=== PATIENT | male | born 1965 | race Caucasian/White ===

== ENCOUNTER → 2019-05-20 | Day surgery (SDC) | payer OTHER ==
[2019-05-18 10:30] LABS: BASOPHILS % 0.5 % (0.0-1.0); EOSINOPHILS # (AUTO) 0.1 (0.0-0.4); EOSINOPHILS % 1.4 % (0.0-6.0); HEMATOCRIT 47.1 % (38.2-49.6); LYMPHOCYTES # (AUTO) 1.6 (1.0-3.2); LYMPHOCYTES % 20.5 % (18.0-39.1); MEAN CORPUSCULAR HEMOGLOBIN 32.1 pg (28-32); MEAN CORPUSCULAR VOLUME 94.6 fL (81-99); MONOCYTES # (AUTO) 0.9 (0.2-0.8); NEUTROPHILS % 65.5 % (38.7-80.0); PLATELET COUNT 192 x10e3/uL (140-360); RED BLOOD COUNT 4.98 x10e6/uL (4.3-5.7); RED CELL DISTRIBUTION WIDTH 13.5 % (11.7-14.4)
[2019-05-18 10:49] LABS: ALANINE AMINOTRANSFERASE 18 IU/L (0-55); ALBUMIN 4.3 g/dL (3.5-5.0); ALBUMIN/GLOBULIN RATIO 1.2 (0.8-2.0); ALKALINE PHOSPHATASE 106 IU/L (40-150); ANION GAP 12.5 mmol/L (8-16); BLOOD UREA NITROGEN 25 mg/dL (7-26); BUN/CREATININE RATIO 27 (6-25); CALCIUM 9.8 mg/dL (8.4-10.2); CARBON DIOXIDE 26 mmol/L (22-29); CHLORIDE 103 mmol/L (98-107); CREATININE, SERUM 0.93 mg/dL (0.72-1.25); EST GLOMERULAR FILTRATION RATE > 60 ML/MIN (60-); GLUCOSE 97 mg/dL (74-118); POTASSIUM 4.5 mmol/L (3.5-5.1); SODIUM 137 mmol/L (136-145)
[2019-05-18 10:53] LABS: INR 0.92; PROTHROMBIN TIME 12.8 seconds (11.9-14.5)
[2019-05-18 10:54] LABS: PARTIAL THROMBOPLASTIN TIME 35.4 seconds (23.8-35.5)
--- NOTE | 2019-05-18 13:45 | Diagnostic Imaging Report ---
EXAMINATION: CHEST 2 VIEWS INDICATION: Preop. Left heart catheter ^PREOP FOR LEFT HEART CATHETERIZATION ^[id number] ^1104 COMPARISON: None FINDINGS: TUBES and LINES: Sternal wires. LUNGS: Lungs are well inflated. Lungs are clear. There is no evidence of pneumonia or pulmonary edema. PLEURA: No pleural effusion or pneumothorax. HEART AND MEDIASTINUM: The cardiomediastinal silhouette is unremarkable. BONES AND SOFT TISSUES: No acute osseous lesion. Soft tissues are unremarkable. UPPER ABDOMEN: No free air under the diaphragm. IMPRESSION: No acute thoracic abnormality. Signed by: Dr. Pako Maciel M.D. on 05/18/2019 1:41 PM
[2019-05-20] VITALS (13 sets, daily range): BP systolic 111–133; BP diastolic 58–82
[~2019-05-20] VITALS: Ht 177.8 cm; Wt 88.5 kg
[~2019-05-20] MED LIST: ASPIR 8181 MG PO; ASPIRIN BUFFER325 MG PO; ATORVASTATIN CA40 MG PO; BIVALRIUDIN 250 MG/VIAL VIAL IV ONE; CLOPIDOGREL BISULFATE 75 MG TAB ONE; CLOPIDOGREL75 MG PO; COQ-10100 MG PO; CRESTOR40 MG PO; CYMBALTA30 MG PO; EFFIENT10 MG PO; FENTANYL CITRATE/PF 100MCG/2 ML INJ ONE; HEPARIN SOD/SOD CHLORIDE 2,000 ML ONE; IOPAMIDOL 370 MG/ML 200 ML INFUS..BTL INJ ONE; LIDOCAINE HCL 2% LOCAL 20 ML VIAL ONE; METOPROLOL TART50 MG PO; MIDAZOLAM HCL 2 MG/2 ML VIAL ONE; MIRAPEX0.25 MG PO; NIACIN100 MG PO; PANTOPRAZOLE SO40 MG PO; SODIUM CHLORIDE 0.9% 1000ML 1,000 ML ONE; SODIUM CHLORIDE 0.9% 50ML 50 ML ONE; VITAMIN C500 M1 PO; XANAX2 MG PO
--- OUTSIDE RECORDS SUMMARY | 2019-05-20 07:17 | XMS REPORT | Clinical Summary ---
Author Author [facility] Address Unknown Phone Unavailable Care Team Providers Care Pattern Vault Clerk Name Role Phone Aris Aguilar MD PCP Allergies Not on File Medications Not on file Active Problems Not on file Social History Date Tobacco Use Types Packs/Day Years Used Never Assessed Sex Assigned at Date Recorded Not on file Industry Job Start Date Occupation Not on file Not on file Not on file Travel End Travel History Travel Start No recent travel history available. Last Filed Vital Signs Not on file Plan of Treatment Health Maintenance Due Date Last Done Comments COLONOSCOPY SCREENING 2016 SHINGLES VACCINES (#1) 2016 INFLUENZA VACCINE 06/02/2019 Results Not on fileafter 05/19/2018 Insurance Type Payer Benefit Subscriber ID Effective Phone Address Plan / Dates Group HMO/PPO [employer] xxxxxxxxx 2015-P THCARE resent CHOICE/CHO ICE + Advance Directives Patient has advance care planning documents on file. For more information, kirit roberson contact: Zhao Lux [address] [place] [address]
--- OUTSIDE RECORDS SUMMARY | 2019-05-20 07:18 | XMS REPORT | Clinical Summary ---
Author Author [facility] Address Unknown Phone Unavailable Care Team Providers Care Customer Engineer Name Role Phone Aris Aguilar PCP Maria Luisa Castellano 32 Unavailable Allergies No Known Allergies Medications End Date Status Medication Sig Dispensed Refills Start Date Active ALPRAZolam (XANAX) 1 MG Take 1 mg by 0 tablet mouth 3 (three) times daily as needed for Anxiety. Active DULoxetine (CYMBALTA) 60 Take 60 mg by 0 MG capsule mouth daily. Active psyllium (METAMUCIL) Take 1 packet 0 powder by mouth daily. Active coenzyme Q10 100 mg Take 100 mg 0 capsule by mouth daily. Active aspirin 81 MG EC tablet Take 81 mg by 0 mouth daily. 09/06/2019 Active sodium chloride 0.65% 1 spray by 15 mL 0 (OCEAN) 0.65 % nasal Nasal route 8 spray as needed. 09/06/2019 Active senna (SENOKOT) 8.6 mg Take 1 tablet 30 tablet 0 tablet (8.6 mg 8 total) by mouth every night as needed for Constipation. Active melatonin 5 mg Tab tablet Take 1 tablet 30 each 0 (5 mg total) 8 by mouth nightly. 09/07/2019 Active clopidogrel (PLAVIX) 75 Take 1 tablet 30 tablet 2 mg tablet (75 mg total) 8 by mouth daily. 09/06/2019 Active lisinopril (ZESTRIL) 2.5 Take 1 tablet 30 tablet 11 MG tablet (2.5 mg 8 total) by mouth daily. 09/06/2019 Active metoprolol (TOPROL-XL) Take 0.5 30 tablet 3 100 MG 24 hr tablet tablets (50 8 mg total) by mouth daily. Active atorvastatin (LIPITOR) 80 Take 1 tablet 30 tablet 3 MG tablet (80 mg total) 8 by mouth daily. 09/06/2018 Discontinued METOPROLOL SUCCINATE ORAL Take by mouth 0 daily. 09/06/2018 Discontinued atorvastatin (LIPITOR) 40 Take 40 mg by 0 MG tablet mouth daily. 09/06/2018 Discontinued atorvastatin (LIPITOR) 40 Take 2 30 tablet 0 MG tablet tablets (80 8 mg total) by mouth daily. 09/06/2018 Discontinued metoprolol (TOPROL-XL) Take 1 tablet 30 tablet 3 100 MG 24 hr tablet (100 mg 8 total) by mouth daily. 09/09/2018 mINOCYCLine Take 1 6 capsule 0 (MINOCIN,DYNACIN) 100 MG capsule (100 8 capsule mg total) by mouth every 12 (twelve) hours for 3 days. 10/07/2018 lidocaine (LIDODERM) 5 % Place 1 patch 30 patch 0 patch onto the skin 8 daily for 30 days Remove & Discard patch within 12 hours or as directed by MD. 09/06/2018 Discontinued furosemide (LASIX) 20 MG Take 1 tablet 20 tablet 0 tablet (20 mg total) 8 by mouth 2 (two) times daily. 09/06/2018 Discontinued potassium chloride SA Take 1 tablet 60 tablet 2 (K-DUR,KLOR-CON) 20 MEQ (20 mEq 8 tablet total) by mouth 2 (two) times daily. Active Problems Problem Noted Date NSTEMI (non-ST elevated myocardial infarction) 09/04/2018 Essential hypertension 09/04/2018 HLD (hyperlipidemia) 09/04/2018 Anxiety and depression 09/04/2018 S/P CABG x 3 09/01/2018 Respiratory insufficiency 09/01/2018 Lactic acidosis 09/01/2018 Hyperglycemia 09/01/2018 Acute blood loss anemia 09/01/2018 Coronary artery disease 08/31/2018 Encounters Care Team Description Date Type Specialty Sunil Chin MD EXPLORATION,MEDIASTINAL 09/01/2018 Surgery Livan Baker MD 09/01/2018 Anesthesia Event Elie Moon 08/31/2018 Anesthesia Event Sunil Chin MD BYPASS,AORTO CORONARY RONIT/SVG 08/31/2018 Surgery Suinl Chin MD S/P CABG (coronary artery bypass graft) (Primary Dx); Respiratory insufficiency; Coronary artery disease involving [place] heart with unstable angina pectoris, unspecified vessel or lesion type (HCC); Essential hypertension; Acute blood loss anemia; Thrombocytopenia (HCC); Generalized anxiety disorder 08/31/2018 Hospital Cardiology - Encounter 09/06/2018 Sunil Chin MD 08/30/2018 Hospital Encounter Sunil Chin MD 08/30/2018 Hospital Cardiology Encounter Sunil Chin MD Acute blood loss anemia 08/30/2018 Hospital Pre-Admission Testing Encounter Elissa Walker RN 08/27/2018 Orders Only Transplant after 05/19/2018 Social History Date Tobacco Use Types Packs/Day Years Used Quit: 08/24/2018 Former Smoker 0.5 30 Smokeless Tobacco: Never Used Tobacco Cessation: Counseling Given: Yes Alcohol Use Drinks/Week oz/Week Comments Yes rarely Sex Assigned at Date Recorded Not on file Industry Job Start Date Occupation Not on file Not on file Not on file Travel End Travel History Travel Start No recent travel history available. Last Filed Vital Signs Time Taken Vital Sign Reading 09/06/2018 11:52 AM 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 Blood Pressure 107/55 09/06/2018 11:52 AM 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 Pulse 67 09/06/2018 11:52 AM 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 Temperature 36.6 C (97.8 F) 09/06/2018 11:52 AM 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 Respiratory Rate 18 09/06/2018 11:52 AM 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 Oxygen Saturation 93% 09/01/2018 5:15 PM CDT Inhaled Oxygen 60% Concentration 09/06/2018 4:10 AM 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 Weight 89 kg (196 lb 1.6 oz) 08/31/2018 8:00 AM CDT Height 177.8 cm (5' 10") 09/06/2018 4:10 AM 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 Body Mass Index 28.14 Plan of Treatment Not on file Implants Device Identifier Shelf Expiration Date Model / Serial / Lot Implanted Type Area Manufactur er 03/01/2023 [id number] / / [id number] Sternal Zipfix Ndl Strl Cardiovasc N/A: Sternum SYNTHES:SY [id number] - [id number] ular [employer]THES [place] Implanted: Qty: 2 on 08/31/2018 by Sunil Chin MD 03/01/2023 [id number] / / [id number] Sternal Zipfix Ndl Strl Cardiovasc SYNTHES:SY .[id number] - [id number] ular [employer]THES [place] Implanted: Qty: 2 on 09/01/2018 by Sunil Chin MD Procedures Comments Procedure Name Priority Date/Time Associated Diagnosis RHYTHM STRIP - SCAN 02/10/2019 11:40 AM CDT TRANSFUSE PLASMA STAT 12/09/2018 5:33 PM 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 RHYTHM STRIP - SCAN 09/08/2018 11:40 AM 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 NM MUGA CARD IMAGING EQ Routine 09/05/2018 REST WM EF 3:40 PM 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 ECHOCARDIOGRAM REPORT - 09/05/2018 SCAN 3:20 PM 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 XR CHEST 1 VIEW Routine 09/05/2018 PORTABLE/BEDSIDE 5:41 AM 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 BASIC METABOLIC PANEL (7) Routine 09/05/2018 5:28 AM 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 CBC (HEMOGRAM ONLY) Routine 09/05/2018 5:28 AM 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 2D ECHO W/ DOPPLER Routine 09/04/2018 (CW/PW/COLOR) 5:08 PM CDT XR CHEST 1 VIEW NERI 09/04/2018 PORTABLE/BEDSIDE 3:37 PM CDT XR CHEST 1 VIEW Routine 09/04/2018 PORTABLE/BEDSIDE 7:12 AM CDT BASIC METABOLIC PANEL (7) Routine 09/04/2018 5:48 AM CDT TRANSFUSION SERVICE 09/03/2018 REPORT - SCAN 5:50 PM CDT CBC W/PLT COUNT & AUTO NERI 09/03/2018 DIFFERENTIAL 10:34 AM CDT BASIC METABOLIC PANEL (7) NERI 09/03/2018 10:34 AM CDT CBC W/PLT COUNT & AUTO NERI 09/03/2018 DIFFERENTIAL 10:34 AM CDT XR CHEST 1 VIEW Routine 09/03/2018 PORTABLE/BEDSIDE 7:31 AM CDT PREPARE PLASMA STAT 09/02/2018 11:55 PM CDT PREPARE LEUKO-REDUCED RBC STAT 09/02/2018 11:54 PM CDT PREPARE LEUKO-REDUCED RBC STAT 09/02/2018 11:54 PM CDT PREPARE LEUKO-REDUCED STAT 09/02/2018 PLATELETS 11:54 PM CDT PREPARE CRYOPRECIPITATE STAT 09/02/2018 11:54 PM CDT PREPARE LEUKO-REDUCED RBC STAT 09/02/2018 11:54 PM CDT TRANSFUSION SERVICE 09/02/2018 REPORT - SCAN 6:03 PM CDT XR CHEST 1 VIEW STAT 09/02/2018 PORTABLE/BEDSIDE 5:52 PM CDT XR CHEST 1 VIEW STAT 09/02/2018 PORTABLE/BEDSIDE 10:55 AM CDT POCT-GLUCOSE METER Routine 09/02/2018 10:11 AM CDT PROCALCITONIN Routine 09/02/2018 10:06 AM CDT ECHOCARDIOGRAM REPORT - 09/02/2018 SCAN 9:20 AM CDT POCT-GLUCOSE METER Routine 09/02/2018 5:40 AM CDT POCT-GLUCOSE METER Routine 09/02/2018 2:58 AM CDT CBC (HEMOGRAM ONLY) Routine 09/02/2018 2:56 AM CDT PHOSPHORUS Routine 09/02/2018 2:56 AM CDT MAGNESIUM Routine 09/02/2018 2:56 AM CDT BASIC METABOLIC PANEL (7) Routine 09/02/2018 2:56 AM CDT PREPARE PLASMA STAT 09/01/2018 11:55 PM CDT PREPARE PLATELETS STAT 09/01/2018 11:54 PM CDT POCT-GLUCOSE METER Routine 09/01/2018 11:24 PM CDT POCT-GLUCOSE METER Routine 09/01/2018 9:43 PM CDT CBC W/PLT COUNT & AUTO STAT 09/01/2018 DIFFERENTIAL 9:41 PM CDT LACTIC ACID, ARTERIAL STAT 09/01/2018 9:41 PM CDT CBC W/PLT COUNT & AUTO STAT 09/01/2018 DIFFERENTIAL 9:41 PM CDT TRANSFUSION SERVICE 09/01/2018 REPORT - SCAN 6:02 PM CDT POCT-GLUCOSE METER Routine 09/01/2018 5:08 PM CDT BLOOD GAS, ARTERIAL Routine 09/01/2018 5:06 PM CDT ECG 12-LEAD Routine 09/01/2018 3:33 PM CDT POCT-GLUCOSE METER Routine 09/01/2018 3:24 PM CDT TROPONIN I Routine 09/01/2018 3:24 PM CDT LIMITED 2D ECHOCARDIOGRAM STAT 09/01/2018 2:51 PM CDT OXYGEN SATURATION, Routine 09/01/2018 MEASURED 1:10 PM CDT LACTIC ACID, ARTERIAL Routine 09/01/2018 1:10 PM CDT BLOOD GAS, ARTERIAL STAT 09/01/2018 1:10 PM CDT XR CHEST 1 VIEW STAT 09/01/2018 PORTABLE/BEDSIDE 11:02 AM CDT (CELLAVISION MANUAL DIFF) STAT 09/01/2018 10:31 AM CDT CBC W/PLT COUNT & AUTO STAT 09/01/2018 DIFFERENTIAL 10:31 AM CDT BLOOD GAS, ARTERIAL STAT 09/01/2018 10:31 AM CDT PT/APTT STAT 09/01/2018 10:31 AM CDT CALCIUM, IONIZED STAT 09/01/2018 10:31 AM CDT PHOSPHORUS STAT 09/01/2018 10:31 AM CDT MAGNESIUM STAT 09/01/2018 10:31 AM CDT BASIC METABOLIC PANEL (7) STAT 09/01/2018 10:31 AM CDT CBC W/PLT COUNT & AUTO STAT 09/01/2018 DIFFERENTIAL 10:31 AM CDT HGB/HCT (H&H) - STAT LAB STAT 09/01/2018 9:29 AM CDT GLUCOSE-STAT LAB STAT 09/01/2018 9:29 AM CDT POTASSIUM-STAT LAB STAT 09/01/2018 9:29 AM CDT SODIUM NA-STAT LAB STAT 09/01/2018 9:29 AM CDT BLOOD GAS, ARTERIAL STAT 09/01/2018 9:29 AM CDT CALCIUM, IONIZED STAT 09/01/2018 9:29 AM CDT RRL CRITICAL LABS STAT 09/01/2018 (ABG,NA,K,H&H,GLUCOSE) 9:29 AM CDT HGB/HCT (H&H) - STAT LAB STAT 09/01/2018 8:39 AM CDT GLUCOSE-STAT LAB STAT 09/01/2018 8:39 AM CDT POTASSIUM-STAT LAB STAT 09/01/2018 8:39 AM CDT SODIUM NA-STAT LAB STAT 09/01/2018 8:39 AM CDT BLOOD GAS, ARTERIAL STAT 09/01/2018 8:39 AM CDT CALCIUM, IONIZED STAT 09/01/2018 8:39 AM CDT RRL CRITICAL LABS STAT 09/01/2018 (ABG,NA,K,H&H,GLUCOSE) 8:39 AM CDT TRANSFUSE LEUKO-REDUCED Routine 09/01/2018 RED BLOOD CELLS 8:17 AM CDT HGB/HCT (H&H) - STAT LAB STAT 09/01/2018 7:57 AM CDT GLUCOSE-STAT LAB STAT 09/01/2018 7:57 AM CDT POTASSIUM-STAT LAB STAT 09/01/2018 7:57 AM CDT SODIUM NA-STAT LAB STAT 09/01/2018 7:57 AM CDT BLOOD GAS, ARTERIAL STAT 09/01/2018 7:57 AM CDT CALCIUM, IONIZED STAT 09/01/2018 7:57 AM CDT RRL CRITICAL LABS STAT 09/01/2018 (ABG,NA,K,H&H,GLUCOSE) 7:57 AM CDT TRANSFUSE LEUKO-REDUCED Routine 09/01/2018 RED BLOOD CELLS 7:39 AM CDT TRANSFUSE LEUKO-REDUCED STAT 09/01/2018 RED BLOOD CELLS 7:24 AM CDT TRANSFUSE LEUKO-REDUCED STAT 09/01/2018 RED BLOOD CELLS 7:22 AM CDT TRANSFUSE LEUKO-REDUCED STAT 09/01/2018 PLATELETS 7:21 AM CDT HGB/HCT (H&H) - STAT LAB STAT 09/01/2018 7:17 AM CDT GLUCOSE-STAT LAB STAT 09/01/2018 7:17 AM CDT POTASSIUM-STAT LAB STAT 09/01/2018 7:17 AM CDT SODIUM NA-STAT LAB STAT 09/01/2018 7:17 AM CDT BLOOD GAS, ARTERIAL STAT 09/01/2018 7:17 AM CDT PLATELET COUNT Routine 09/01/2018 7:17 AM CDT FIBRINOGEN STAT 09/01/2018 7:17 AM CDT APTT STAT 09/01/2018 7:17 AM CDT PROTHROMBIN TIME/INR STAT 09/01/2018 7:17 AM CDT THROMBOELASTOGRAPH (TEG) STAT 09/01/2018 7:17 AM CDT CALCIUM, IONIZED STAT 09/01/2018 7:17 AM CDT RRL CRITICAL LABS STAT 09/01/2018 (ABG,NA,K,H&H,GLUCOSE) 7:17 AM CDT TRANSFUSE PLASMA STAT 09/01/2018 7:05 AM CDT EXPLORATION,MEDIASTINAL 09/01/2018 Coronary artery disease, 7:00 AM CDT angina presence unspecified, unspecified vessel or lesion type, unspecified whether [place] or transplanted heart HGB/HCT (H&H) - STAT LAB STAT 09/01/2018 6:38 AM CDT BLOOD GAS, ARTERIAL STAT 09/01/2018 6:38 AM CDT THROMBOELASTOGRAPH (TEG) STAT 09/01/2018 6:38 AM CDT TRANSFUSE CRYOPRECIPITATE STAT 09/01/2018 6:35 AM CDT TRANSFUSE CRYOPRECIPITATE STAT 09/01/2018 6:34 AM CDT TRANSFUSE LEUKO-REDUCED STAT 09/01/2018 RED BLOOD CELLS 6:33 AM CDT TRANSFUSE LEUKO-REDUCED STAT 09/01/2018 RED BLOOD CELLS 6:32 AM CDT XR CHEST 1 VIEW STAT 09/01/2018 PORTABLE/BEDSIDE 6:22 AM CDT XR CHEST 1 VIEW STAT 09/01/2018 PORTABLE/BEDSIDE 5:38 AM CDT FIBRINOGEN STAT 09/01/2018 4:09 AM CDT APTT STAT 09/01/2018 4:09 AM CDT PROTHROMBIN TIME/INR STAT 09/01/2018 4:09 AM CDT LACTIC ACID, ARTERIAL STAT 09/01/2018 4:06 AM CDT OXYGEN SATURATION, STAT 09/01/2018 MEASURED 4:05 AM CDT BLOOD GAS, ARTERIAL STAT 09/01/2018 4:05 AM CDT PHOSPHORUS Routine 09/01/2018 4:05 AM CDT MAGNESIUM Routine 09/01/2018 4:05 AM CDT BASIC METABOLIC PANEL (7) Routine 09/01/2018 4:05 AM CDT XR CHEST 1 VIEW Routine 09/01/2018 PORTABLE/BEDSIDE 3:51 AM CDT LACTIC ACID, ARTERIAL STAT 09/01/2018 1:29 AM CDT HGB/HCT (H&H) - STAT LAB STAT 09/01/2018 12:47 AM CDT GLUCOSE-STAT LAB STAT 09/01/2018 12:47 AM CDT POTASSIUM-STAT LAB STAT 09/01/2018 12:47 AM CDT SODIUM NA-STAT LAB STAT 09/01/2018 12:47 AM CDT RRL CRITICAL LABS STAT 09/01/2018 (ABG,NA,K,H&H,GLUCOSE) 12:47 AM CDT CALCIUM, IONIZED STAT 09/01/2018 12:47 AM CDT BLOOD GAS, ARTERIAL STAT 09/01/2018 12:47 AM CDT PREPARE RBC STAT 08/31/2018 11:57 PM CDT HEMOGLOBIN AND HEMATOCRIT STAT 08/31/2018 11:16 PM CDT PLATELET COUNT STAT 08/31/2018 11:16 PM CDT FIBRINOGEN STAT 08/31/2018 11:16 PM CDT APTT STAT 08/31/2018 11:16 PM CDT PROTHROMBIN TIME/INR STAT 08/31/2018 11:16 PM CDT BASIC METABOLIC PANEL (7) STAT 08/31/2018 11:16 PM CDT BLOOD GAS, ARTERIAL STAT 08/31/2018 11:16 PM CDT TROPONIN I Routine 08/31/2018 11:16 PM CDT CREATINE KINASE (CK), Routine 08/31/2018 TOTAL AND MB 11:16 PM CDT CREATINE KINASE (CK), Routine 08/31/2018 TOTAL AND MB 11:16 PM CDT CBC W/PLT COUNT & AUTO STAT 08/31/2018 DIFFERENTIAL 10:06 PM CDT OXYGEN SATURATION, Routine 08/31/2018 MEASURED 10:06 PM CDT LACTIC ACID, ARTERIAL Routine 08/31/2018 10:06 PM CDT CBC W/PLT COUNT & AUTO STAT 08/31/2018 DIFFERENTIAL 10:06 PM CDT PHOSPHORUS STAT 08/31/2018 10:06 PM CDT GLUCOSE STAT 08/31/2018 10:06 PM CDT MAGNESIUM STAT 08/31/2018 10:06 PM CDT POTASSIUM STAT 08/31/2018 10:06 PM CDT SODIUM STAT 08/31/2018 10:06 PM CDT BLOOD GAS, ARTERIAL STAT 08/31/2018 10:06 PM CDT XR CHEST 1 VIEW Routine 08/31/2018 PORTABLE/BEDSIDE 10:02 PM CDT TRANSFUSE PLASMA Routine 08/31/2018 9:44 PM CDT HGB/HCT (H&H) - STAT LAB STAT 08/31/2018 9:30 PM CDT GLUCOSE-STAT LAB STAT 08/31/2018 9:30 PM CDT POTASSIUM-STAT LAB STAT 08/31/2018 9:30 PM CDT SODIUM NA-STAT LAB STAT 08/31/2018 9:30 PM CDT BLOOD GAS, ARTERIAL STAT 08/31/2018 9:30 PM CDT CALCIUM, IONIZED STAT 08/31/2018 9:30 PM CDT THROMBOELASTOGRAPH (TEG) STAT 08/31/2018 9:30 PM CDT FIBRINOGEN STAT 08/31/2018 9:30 PM CDT PROTHROMBIN TIME/INR STAT 08/31/2018 9:30 PM CDT APTT STAT 08/31/2018 9:30 PM CDT RRL CRITICAL LABS STAT 08/31/2018 (ABG,NA,K,H&H,GLUCOSE) 9:30 PM CDT TRANSFUSE LEUKO-REDUCED Routine 08/31/2018 PLATELETS 9:17 PM CDT TRANSFUSE PLASMA Routine 08/31/2018 9:11 PM CDT TRANSFUSE LEUKO-REDUCED Routine 08/31/2018 PLATELETS 9:10 PM CDT TRANSFUSE PLASMA Routine 08/31/2018 9:09 PM CDT HGB/HCT (H&H) - STAT LAB STAT 08/31/2018 8:22 PM CDT GLUCOSE-STAT LAB STAT 08/31/2018 8:22 PM CDT POTASSIUM-STAT LAB STAT 08/31/2018 8:22 PM CDT SODIUM NA-STAT LAB STAT 08/31/2018 8:22 PM CDT BLOOD GAS, ARTERIAL STAT 08/31/2018 8:22 PM CDT RRL CRITICAL LABS STAT 08/31/2018 (ABG,NA,K,H&H,GLUCOSE) 8:22 PM CDT HGB/HCT (H&H) - STAT LAB STAT 08/31/2018 7:58 PM CDT GLUCOSE-STAT LAB STAT 08/31/2018 7:58 PM CDT POTASSIUM-STAT LAB STAT 08/31/2018 7:58 PM CDT SODIUM NA-STAT LAB STAT 08/31/2018 7:58 PM CDT BLOOD GAS, ARTERIAL STAT 08/31/2018 7:58 PM CDT PLATELET COUNT Routine 08/31/2018 7:58 PM CDT THROMBOELASTOGRAPH (TEG) STAT 08/31/2018 7:58 PM CDT FIBRINOGEN STAT 08/31/2018 7:58 PM CDT APTT STAT 08/31/2018 7:58 PM CDT PROTHROMBIN TIME/INR STAT 08/31/2018 7:58 PM CDT CALCIUM, IONIZED STAT 08/31/2018 7:58 PM CDT RRL CRITICAL LABS STAT 08/31/2018 (ABG,NA,K,H&H,GLUCOSE) 7:58 PM CDT HGB/HCT (H&H) - STAT LAB STAT 08/31/2018 7:24 PM CDT GLUCOSE-STAT LAB STAT 08/31/2018 7:24 PM CDT POTASSIUM-STAT LAB STAT 08/31/2018 7:24 PM CDT SODIUM NA-STAT LAB STAT 08/31/2018 7:24 PM CDT BLOOD GAS, ARTERIAL STAT 08/31/2018 7:24 PM CDT RRL CRITICAL LABS STAT 08/31/2018 (ABG,NA,K,H&H,GLUCOSE) 7:24 PM CDT HGB/HCT (H&H) - STAT LAB STAT 08/31/2018 6:50 PM CDT GLUCOSE-STAT LAB STAT 08/31/2018 6:50 PM CDT POTASSIUM-STAT LAB STAT 08/31/2018 6:50 PM CDT SODIUM NA-STAT LAB STAT 08/31/2018 6:50 PM CDT BLOOD GAS, ARTERIAL STAT 08/31/2018 6:50 PM CDT RRL CRITICAL LABS STAT 08/31/2018 (ABG,NA,K,H&H,GLUCOSE) 6:50 PM CDT HGB/HCT (H&H) - STAT LAB STAT 08/31/2018 6:22 PM CDT GLUCOSE-STAT LAB STAT 08/31/2018 6:22 PM CDT POTASSIUM-STAT LAB STAT 08/31/2018 6:22 PM CDT SODIUM NA-STAT LAB STAT 08/31/2018 6:22 PM CDT BLOOD GAS, ARTERIAL STAT 08/31/2018 6:22 PM CDT RRL CRITICAL LABS STAT 08/31/2018 (ABG,NA,K,H&H,GLUCOSE) 6:22 PM CDT TRANSFUSION SERVICE 08/31/2018 REPORT - SCAN 6:11 PM CDT HGB/HCT (H&H) - STAT LAB STAT 08/31/2018 4:34 PM CDT GLUCOSE-STAT LAB STAT 08/31/2018 4:34 PM CDT POTASSIUM-STAT LAB STAT 08/31/2018 4:34 PM CDT SODIUM NA-STAT LAB STAT 08/31/2018 4:34 PM CDT BLOOD GAS, ARTERIAL STAT 08/31/2018 4:34 PM CDT CALCIUM, IONIZED STAT 08/31/2018 4:34 PM CDT RRL CRITICAL LABS STAT 08/31/2018 (ABG,NA,K,H&H,GLUCOSE) 4:34 PM CDT POCT-ACT Routine 08/31/2018 2:39 PM CDT POCT-ACT Routine 08/31/2018 2:27 PM CDT HGB/HCT (H&H) - STAT LAB STAT 08/31/2018 2:13 PM CDT GLUCOSE-STAT LAB STAT 08/31/2018 2:13 PM CDT POTASSIUM-STAT LAB STAT 08/31/2018 2:13 PM CDT SODIUM NA-STAT LAB STAT 08/31/2018 2:13 PM CDT BLOOD GAS, ARTERIAL STAT 08/31/2018 2:13 PM CDT CALCIUM, IONIZED STAT 08/31/2018 2:13 PM CDT RRL CRITICAL LABS STAT 08/31/2018 (ABG,NA,K,H&H,GLUCOSE) 2:13 PM CDT ANESTHESIA EDGAR Routine 08/31/2018 1:36 PM CDT EDGAR 08/31/2018 Coronary artery disease 11:00 AM CDT involving [place] coronary artery, angina presence unspecified, unspecified whether [place] or transplanted heart Case Notes 4[facility] RY ARTERY BYPASS BYPASS,AORTO CORONARY 08/31/2018 Coronary artery disease RONIT/SVG 11:00 AM CDT involving [place] coronary artery, angina presence unspecified, unspecified whether [place] or transplanted heart Case Notes 4[facility] RY ARTERY BYPASS POCT-ACT Routine 08/31/2018 7:36 AM CDT POCT-ACT Routine 08/31/2018 7:24 AM CDT POCT-ACT Routine 08/31/2018 7:08 AM CDT POCT-ACT Routine 08/31/2018 6:48 AM CDT POCT-ACT Routine 08/31/2018 6:34 AM CDT POCT-ACT Routine 08/31/2018 6:19 AM CDT POCT-ACT Routine 08/31/2018 6:07 AM CDT POCT-ACT Routine 08/31/2018 5:56 AM CDT POCT-ACT Routine 08/31/2018 5:45 AM CDT XR CHEST 2 VIEWS Routine 08/30/2018 1:55 PM CDT ECG 12-LEAD Routine 08/30/2018 12:41 PM CDT Procedure Note - Interface, External Ris In - 08/30/2018 5:36 PM CDT Ventricula r Rate 54 BPM Atrial Rate 54 BPM P-R Interval 162 ms QRS Duration 122 ms Q-T Interval 418 ms QTC Calculatio n(Bazett) 396 ms P [place] 52 degrees R [place] -6 degrees T [place] 38 degrees Sinus bradycardi a with sinus arrhythmia Non-specif ic intra-vent ricular conduction delay Borderline ECG No previous ECGs available ECG 12-LEAD Routine 08/30/2018 12:41 PM CDT URINALYSIS W/ MICROSCOPIC Routine 08/30/2018 12:41 PM CDT CBC W/PLT COUNT & AUTO Routine 08/30/2018 DIFFERENTIAL 12:40 PM CDT ABORH, MANUAL Routine 08/30/2018 12:40 PM CDT TYPE AND SCREEN, Routine 08/30/2018 AUTOMATED 12:40 PM CDT COMPREHENSIVE METABOLIC Routine 08/30/2018 PANEL 12:40 PM CDT HEMOGLOBIN A1C Routine 08/30/2018 12:40 PM CDT CBC W/PLT COUNT & AUTO Routine 08/30/2018 DIFFERENTIAL 12:40 PM CDT PROTHROMBIN TIME/INR Routine 08/30/2018 12:40 PM CDT after 05/19/2018 Results * RHYTHM STRIP - SCAN (02/10/2019 11:40 AM CDT) Only the most recent of 2 results within the time period is included. Narrative Performed At * Transfuse plasma (12/09/2018 5:33 PM 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) Only the most recent of 5 results within the time period is included. * NM muga study (rest) (09/05/2018 3:40 PM 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) Specimen Narrative Performed At FINAL REPORT [facility] PROCEDURE:Resting RADIONUCLIDE VENTRICULOGRAM (MUGA Scan) CPT CODE:01589 INDICATION: CADI25.10, CABG09/01/18 PROTOCOL:Autologous red blood cells were labeled with Tc-99m pertechnetate by the in vitro method. 21.8 mCi of Tc-99m was injected intravenously as labeled red blood cells. Equilibrium gated planar cardiac images were obtained in multiple views at rest. IMAGING FINDINGS:Study quality is good. LV volume appears normal. RV volume appears normal. Gated images obtained at rest show normal LV wall motion and thickening. LVEF is 58%. IMPRESSION: 1. Normal resting radionuclide ventriculogram.2. No prior study. Signed: Daphnie Felipe MD Report Verified Date/Time:09/05/2018 16:04:18 Procedure Note Interface, External Ris In - 09/05/2018 4:06 PM 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 FINAL REPORT PROCEDURE: Resting RADIONUCLIDE VENTRICULOGRAM (MUGA Scan) CPT CODE: 27259 INDICATION: CAD I25.10, CABG 09/01/18 PROTOCOL: Autologous red blood cells were labeled with Tc-99m pertechnetate by the in vitro method. 21.8 mCi of Tc-99m was injected intravenously as labeled red blood cells. Equilibrium gated planar cardiac images were obtained in multiple views at rest. IMAGING FINDINGS: Study quality is good. LV volume appears normal. RV volume appears normal. Gated images obtained at rest show normal LV wall motion and thickening. LVEF is 58%. IMPRESSION: 1. Normal resting radionuclide ventriculogram. 2. No prior study. Signed: Daphnie Felipe MD Report Verified Date/Time: 09/05/2018 16:04:18 Performing Organization Address City/State/Zipcode Phone Number GE RIS * ECHOCARDIOGRAM REPORT - SCAN (09/05/2018 3:20 PM 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) Narrative Performed At * XR chest 1 view portable / bedside (09/05/2018 5:41 AM 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) Only the most recent of 11 results within the time period is included. Specimen Narrative Performed At FINAL REPORT [facility] RAD, CHEST, 1 VIEW, NON DEPT INDICATION: s/p CAB with chest drains COMPARISON: Prior day's exam FINDINGS: Portable frontal view of the chest. IMPRESSION: Lungs and pleura: Unchanged airspace and pleural opacities. Again seen is a tiny right apical pneumothorax. Possible trace left apical pneumothorax. Heart and mediastinum: Stable contours. Stable surgical changes. Additional findings: None. 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 IMPRESSION: Lungs and pleura: Unchanged airspace and pleural opacities. Again seen is a tiny right apical pneumothorax. Possible trace left apical pneumothorax. Heart and mediastinum: Stable contours. Stable surgical changes. Additional findings: None. Signed: Nathen Powell MD Report Verified Date/Time: 09/05/2018 06:35:19 Reading Location: [facility] [id number] Transitional Reading Room Performing Organization Address City/[facility] Servicescode Phone Number GE RIS * CBC (Hemogram only) (09/05/2018 5:28 AM 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) Only the most recent of 2 results within the time period is included. WBC 10.9 (H) 3.5 - 10.5 K/L [facility] RBC 2.74 (L) 4.63 - 6.08 M/L [facility] Hemoglobin 8.4 (L) 13.7 - 17.5 GM/DL [facility] Hematocrit 25.2 (L) 40.1 - 51.0 % [facility] MCV 92.0 79.0 - 92.2 fL [facility] MCH 30.7 25.7 - 32.2 pg [facility] MCHC 33.3 32.3 - 36.5 GM/DL [facility] RDW 15.5 (H) 11.6 - 14.4 % [facility] Platelets 120 (L) 150 - 450 K/CU MM [facility] MPV 11.2 9.4 - 12.4 fL [facility] nRBC 0 0 - 0 /100 WBC [facility] Specimen Blood Performing Organization Address City/[facility] Servicescode Phone Number [facility] [address] [place], [place] [id number] [facility] * Basic Metabolic Panel (09/05/2018 5:28 AM 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) Only the most recent of 7 results within the time period is included. Sodium 137 136 - 145 meq/L [facility] Potassium 3.6 3.5 - 5.1 meq/L [facility] Chloride 105 98 - 107 meq/L [facility] CO2 25 22 - 29 meq/L [facility] [facility] BUN 16 7 - 21 mg/dL [facility] Creatinine 0.72 0.57 - 1.25 mg/dL [facility] Glucose 126 (H) 70 - 105 mg/dL [facility] Calcium 8.4 8.4 - 10.2 mg/dL [facility] EGFR 115Comment: ESTIMATED GFR IS mL/min/1.73 sq m [facility] NOT ACCURATE CREATININE [facility] CLEARANCE IN PREDICTING GLOMERULAR FILTRATION RATE. ESTIMATED GFR IS NOT APPLICABLE FOR DIALYSIS PATIENTS. Specimen Blood Performing Organization Address City/State/Zipcode Phone Number [place] [phone] [place], [place] [id number] [facility] * 2D Echo W/Doppler(CW/PW/Color) (09/04/2018 5:08 PM CDT) Ejection Fraction [facility]CHO [facility]ART[facility] Specimen Narrative Performed At Transthoracic Echocardiography Report (TTE) [facility]ART[facility] Demographics [facility] Patient Name Dipti ROJAS of Study 09/04/2018 MARIA LUISA [id number] GenderMale Visit Number [id number] RaceUnknown [id number] Number [id number] Number Date of Birth1965 Referring Physician sunil chin Age53 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 Clinical History CAD;IL;STENTS, S/P CABGX3 08/31/18;EHTN;HLD;HTN;NSTEMI;WANDA HGB 8.7 HCT 26.2 % Height: 70 inches Weight: 87.09 kg (192 lbs) BSA: 2.05 m^2 BMI: 27.55 kg/m^2 HR: 89 bpm BP: 99/64 mmHg Summary The left ventricle is chamber size (by vol index) is normal (male - LVED vol - 34-74ml/m2). Septal motion is abnormal, likely related to prior cardiac surgery . The other segments are hyperdynamic. LVEF by Hurley's method of disk assessment is increased (>70%) . Normal diastolic function. Estimated peak systolic PA pressure is 25-30 mmHg . No pericardial effusion is visualized. Previous Study In comparison with the prior exam 09/01/2018 the following changes are noted: left atrial size is severely enlarged and the PA systolic pressures have increased. Signature Findings Technical Quality: Technically adequate exam. Left Ventricle The LV endocardium is adequately visualized. The left ventricle is chamber size (by vol index) is normal (male - LVED vol - 34-74ml/m2). No evidence of LV hypertrophy. Septal motion is abnormal, likely related to prior cardiac surgery . The other segments are hyperdynamic. Global LV systolic function hyperdynamic . LVEF by Hurley's method of disk assessment is increased (>70%) . The LVEF was measured using Hurley's bi-plane method of disk . Normal diastolic function. Left AtriumLA size is severely enlarged (>48 ml/m2) . Right VentricleThe right ventricular chamber size and systolic function are within normal limits. Right Atrium RA cavity size is normal . Aortic Valve Normal AoV structure and function by limited views and Doppler. Mitral Valve Normal MV structure and function by available views and Doppler. Tricuspid ValveTV structure is normal. Mild tricuspid regurgitation. Estimated peak systolic PA pressure is 25-30 mmHg . Pulmonic Valve Normal PV structure and function by limited views and Doppler. AortaAortic root size (SInus of Valsalva diameter) is normal . PericardiumNo pericardial effusion is visualized. IVC/SVC/PA/PV/PleuralThe inferior vena cava size is normal . The inferior vena cava is partially visualized. The estimated RA pressure by IVC dynamics 0-5mmHg . Chambers/Structures Left Atrium LA Volume: 107.49 mlLA Area: 28.47 cm^2 LA Vol. Index: 52 ml/m^2 Left Ventricle LVIDd: 5.15 cm LVEDV:126.53 ml LVIDs: 3.19 cm LVESV:32.56 ml LV Septum Diastolic: 1.2 cmLVEF 2D Cube: 76.1 % LV PW Diastolic: 1.16 cm LVEDV Hurley's:129.97 mlLV FS: 38.1 % LVESV Hurley's:36.47 ml LVEF Hurley's: 71.9 % LVEDVI: 63 ml/m^2 LVESVI: 18 ml/m^2 LVOT Diameter: 2.3 cm LVEF: 74.3 % Aorta Ao Root S of Sarah.: 3.55 cm Doppler/Quantitative Measurements Mitral Valve MV Peak E-Wave: 0.88 m/sMV Peak A-Wave: 0.67 m/s E/A Ratio: 1.33 Peak Gradient: 3.12 mmHg Deceleration Time: 158.6 msec MV Jovanny. 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 Clinical History CAD;IL;STENTS, S/P CABGX3 08/31/18;EHTN;HLD;HTN;NSTEMI;WANDA HGB 8.7 HCT 26.2 % Height: 70 inches Weight: 87.09 kg (192 lbs) BSA: 2.05 m^2 BMI: 27.55 kg/m^2 HR: 89 bpm BP: 99/64 mmHg Summary The left ventricle is chamber size (by vol index) is normal (male - LVED vol - 34-74ml/m2). Septal motion is abnormal, likely related to prior cardiac surgery . The other segments are hyperdynamic. LVEF by Hurley's method of disk assessment is increased (>70%) . Normal diastolic function. Estimated peak systolic PA pressure is 25-30 mmHg . No pericardial effusion is visualized. Previous Study In comparison with the prior exam 09/01/2018 the following changes are noted: left atrial size is severely enlarged and the PA systolic pressures have increased. Signature Findings Technical Quality: Technically adequate exam. Left Ventricle The LV endocardium is adequately visualized. The left ventricle is chamber size (by vol index) is normal (male - LVED vol - 34-74ml/m2). No evidence of LV hypertrophy. Septal motion is abnormal, likely related to prior cardiac surgery . The other segments are hyperdynamic. Global LV systolic function hyperdynamic . LVEF by Hurley's method of disk assessment is increased (>70%) . The LVEF was measured using Hurley's bi-plane method of disk . Normal diastolic function. Left Atrium LA size is severely enlarged (>48 ml/m2) . Right Ventricle The right ventricular chamber size and systolic function are within normal limits. Right Atrium RA cavity size is normal . Aortic Valve Normal AoV structure and function by limited views and Doppler. Mitral Valve Normal MV structure and function by available views and Doppler. Tricuspid Valve TV structure is normal. Mild tricuspid regurgitation. Estimated peak systolic PA pressure is 25-30 mmHg . Pulmonic Valve Normal PV structure and function by limited views and Doppler. Aorta Aortic root size (SInus of Valsalva diameter) is normal . Pericardium No pericardial effusion is visualized. IVC/SVC/PA/PV/Pleural The inferior vena cava size is normal . The inferior vena cava is partially visualized. The estimated RA pressure by IVC dynamics 0-5mmHg . Chambers/Structures Left Atrium LA Volume: 107.49 ml LA Area: 28.47 cm^2 LA Vol. Index: 52 ml/m^2 Left Ventricle LVIDd: 5.15 cm LVEDV:126.53 ml LVIDs: 3.19 cm LVESV:32.56 ml LV Septum Diastolic: 1.2 cm LVEF 2D Cube: 76.1 % LV PW Diastolic: 1.16 cm LVEDV Hurley's:129.97 ml LV FS: 38.1 % LVESV Hurley's:36.47 ml LVEF Hurley's: 71.9 % LVEDVI: 63 ml/m^2 LVESVI: 18 ml/m^2 LVOT Diameter: 2.3 cm LVEF: 74.3 % Aorta Ao Root S of Sarah.: 3.55 cm Doppler/Quantitative Measurements Mitral Valve MV Peak E-Wave: 0.88 m/s MV Peak A-Wave: 0.67 m/s E/A Ratio: 1.33 Peak Gradient: 3.12 mmHg Deceleration Time: 158.6 msec MV Jovanny. Peak: Tissue Doppler E' Lateral Velocity: 0.12 m/s A' Lateral Velocity: 0.07 m/s Aortic Valve Peak Velocity: 1.98 m/s Mean Velocity: 1.29 m/s Peak Gradient: 15.61 mmHg Mean Gradient: 8.02 mmHg AV Area (continuity): 2.6 cm^2 AV VTI: 29.77 cm AV DVI: 0.63 LVOT Peak Velocity: 1.3 m/s Peak Gradient: 6.75 mmHg Mean Velocity: 0.82 m/s Mean Gradient: 3.15 mmHg LVOT Diameter: 2.3 cm LVOT VTI: 18.66 cm LVOT Area: 4.15 cm^2 LVOT SV:77.49 ml LVOT CO: 6.9 l/min LVOT CI: 3.37 l/min/m^2 Tricuspid Valve TR Velocity: 2.98 m/s TR Gradient: 35.59 mmHg Performing Organization Address City/State/Zipcode Phone Number [facility] * TRANSFUSION SERVICE REPORT - SCAN (09/03/2018 5:50 PM CDT) Only the most recent of 4 results within the time period is included. Narrative Performed At * CBC with platelet count + automated diff (09/03/2018 10:34 AM CDT) Only the most recent of 5 results within the time period is included. WBC 12.2 (H) 3.5 - 10.5 K/L [facility] RBC 2.88 (L) 4.63 - 6.08 M/L [facility] Hemoglobin 8.7 (L) 13.7 - 17.5 GM/DL [facility] Hematocrit 26.2 (L) 40.1 - 51.0 % [facility] MCV 91.0 79.0 - 92.2 fL [facility] MCH 30.2 25.7 - 32.2 pg [facility] MCHC 33.2 32.3 - 36.5 GM/DL [facility] RDW 16.0 (H) 11.6 - 14.4 % [facility] Platelets 81 (L) 150 - 450 K/CU MM [facility] MPV 11.4 9.4 - 12.4 fL [facility] nRBC 0 0 - 0 /100 WBC [facility] % Neutros 87 % [facility] % Lymphs 4 % [facility] % Monos 7 % [facility] % Eos 1 % [facility] % Baso 0 % [facility] # Neutros 10.63 (H) 1.78 - 5.38 K/L [facility] # Lymphs 0.48 (L) 1.32 - 3.57 K/L [facility] # Monos 0.89 (H) 0.30 - 0.82 K/L [facility] # Eos 0.08 0.04 - 0.54 K/L [facility] # Baso 0.02 0.01 - 0.08 K/L [facility] Immature 1 0 - 1 % [facility] Specimen Blood Performing Organization Address City/State/Zipcode Phone Number [facility] [address] [place] [address] MED[facility]ENTER * Prepare plasma (09/02/2018 11:55 PM CDT) Only the most recent of 2 results within the time period is included. Unit ABO A Pos [place] UNIT NUMBER [id number] [place] Status TRANSFUSED [place] Blood Bank Product FFP [place] PRODUCT CODE [id number] [place] Unit ABO A Pos [place] UNIT NUMBER [id number] [place] Status TRANSFUSED S[place] Blood Bank Product FFP [place] PRODUCT CODE [id number] [place] Specimen Blood Performing Organization Address [facility] Phone Number [place] * Prepare Leuko-Red PLT (09/02/2018 11:54 PM CDT) Unit ABO O Pos [place] UNIT NUMBER [id number] [place] Status TRANSFUSED S[place] Blood Bank Product PLATELETS [place] PRODUCT CODE [id number] [place] Specimen Blood Performing Organization Address [facility] Phone Number [place] * Prepare Leuko-Red RBC (09/02/2018 11:54 PM CDT) Only the most recent of 3 results within the time period is included. CROSSMATCH COMPATIBLE [place] Unit ABO A Pos [place] UNIT NUMBER [id number] [place] Status TRANSFUSED [place] Blood Bank Product RED BLOOD CELLS [place] PRODUCT CODE [id number] [place] CROSSMATCH COMPATIBLE [place] Unit ABO A Pos [place] UNIT NUMBER [id number] [place] Status READY [place] Blood Bank Product RED BLOOD CELLS [place] PRODUCT CODE [id number] [place] CROSSMATCH COMPATIBLE [place] Unit ABO A Pos [place] UNIT NUMBER [id number] [place] Status TRANSFUSED S[place] Blood Bank Product RED BLOOD CELLS [place] PRODUCT CODE [id number] [place] CROSSMATCH COMPATIBLE [place] Unit ABO A Pos [place] UNIT NUMBER [id number] [place] Status READY [place] Blood Bank Product RED BLOOD CELLS [place] PRODUCT CODE [id number] [place] CROSSMATCH COMPATIBLE [place] Unit ABO A Pos [place] UNIT NUMBER [id number] [place] Status READY [place] Blood Bank Product RED BLOOD CELLS [place] PRODUCT CODE [id number] [place] CROSSMATCH COMPATIBLE S[place] Unit ABO A Pos [place] UNIT NUMBER [id number] [place] Status READY [place] Blood Bank Product RED BLOOD CELLS [place] PRODUCT CODE [id number] [place] Specimen Other Performing Organization Address [facility] Phone Number [place] * Prepare cryoprecipitate (09/02/2018 11:54 PM CDT) Unit ABO O Pos [place] UNIT NUMBER [id number] [place] Status TRANSFUSED S[place] Blood Bank Product CRYOPRECIPITATE [place] PRODUCT CODE [id number] [place] Unit ABO O Pos [place] UNIT NUMBER [id number] [place] Status TRANSFUSED S[place] Blood Bank Product CRYOPRECIPITATE [place] PRODUCT CODE [id number] [place] Specimen Blood Performing Organization Address [facility] Phone Number [place] * POC-Glucose meter (09/02/2018 10:11 AM CDT) Only the most recent of 7 results within the time period is included. POC-Glucose Meter 110Comment: TESTED AT [facility] 70 - 110 mg/dL [address] Specimen Blood Performing Organization Address [facility] Phone Number [address] [address] [facility] * Procalcitonin (09/02/2018 10:06 AM CDT) Procalcitonin 0.84 (H) <0.05 ng/mL [facility] Specimen Blood Narrative Performed At SEPSIS RISK (ng/mL) [facility] Low:0.05-0.50 [facility] Intermediate: 0.51-2.00 High: >=2.01 Performing Organization Address [facility] Phone Number [facility] [address] * ECHOCARDIOGRAM REPORT - SCAN (09/02/2018 9:20 AM CDT) Narrative Performed At * Phosphorus (09/02/2018 2:56 AM CDT) Only the most recent of 4 results within the time period is included. Phosphorus 2.2 (L) 2.3 - 4.7 mg/dL [facility] Specimen Blood Performing Organization Address [facility] Phone Number [phone] [place] [address] * Magnesium (09/02/2018 2:56 AM CDT) Only the most recent of 4 results within the time period is included. Magnesium 1.7 1.6 - 2.6 mg/dL [facility] Specimen Blood Performing Organization Address [facility] Phone Number [phone] [place] [address] * Prepare PLT (09/01/2018 11:54 PM CDT) Unit ABO O Pos [place] UNIT NUMBER [id number] [place] Status TRANSFUSED [place] Blood Bank Product PLATELETS [place] PRODUCT CODE [id number] [place] Unit ABO O Pos [place] UNIT NUMBER [id number] [place] Status TRANSFUSED S[place] Blood Bank Product PLATELETS [place] PRODUCT CODE [id number] [place] Performing Organization Address [facility] Phone Number [place] * Lactic acid, arterial, whole blood (09/01/2018 9:41 PM CDT) Only the most recent of 5 results within the time period is included. Lactate, Art 1.2 0.5 - 2.2 mmol/L [facility] Specimen Blood, Arterial Narrative Performed At Effective 03/05/2016: Units/Reference Range Change [facility] New: 0.5-2.2 mmol/LPrevious: 5-20 mg/dL [facility] Specimen slightly icteric Performing Organization Address [facility] Phone Number [facility] [address] [place] [address] [facility] * Blood gas, arterial (09/01/2018 5:06 PM CDT) Only the most recent of 20 results within the time period is included. pH, Arterial 7.43 7.35 - 7.45 [facility] pCO2, Arterial 40 35 - 45 mmHg [facility] pO2, Arterial 128 (H) 80 - 90 mmHg [facility] O2 Sat, Arterial 98.6 (H) 96.0 - 97.0 % [facility] HCO3, Arterial 26 21 - 29 mmol/L [facility] Base Excess, Arterial 1.5 -2.0 - 3.0 mmol/L [facility] Patient Temperature 37.4 C [facility] FIO2 60.0 % [facility] Specimen Blood, Arterial Performing Organization Address [facility] Phone Number [facility] [address] [place] [address] [facility] * ECG 12 lead (09/01/2018 3:33 PM CDT) Only the most recent of 2 results within the time period is included. Specimen Narrative Performed At Ventricular Rate 70 BPM GE MUSE Atrial Rate 70 BPM P-R Interval 158 ms QRS Duration 116 ms Q-T Interval 450 ms QTC Calculation(Bazett) 486 ms P [place] 60 degrees R [place] 51 degrees T [place] 58 degrees Normal sinus rhythm RsR' in V1-V2 Minimal ST elevation inferior leads, most probably early repolarization Prolonged QT Abnormal ECG When compared with ECG of 30-AUG-2018 12:41, Questionable change in QRS axis There is now minimal ST elevation inferior leads QT has lengthened Confirmed by MD LYNDSEY, NANCY ([id number]) on 09/06/2018 6:41:59 AM Procedure Note Interface, External Ris In - 09/06/2018 6:42 AM 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 Ventricular Rate 70 BPM Atrial Rate 70 BPM P-R Interval 158 ms QRS Duration 116 ms Q-T Interval 450 ms QTC Calculation(Bazett) 486 ms P [place] 60 degrees R [place] 51 degrees T [place] 58 degrees Normal sinus rhythm RsR' in V1-V2 Min[address] elevation inferior leads, most probably early repolarization Prolonged QT Abnormal ECG When compared with ECG of 30-AUG-2018 12:41, Questionable change in QRS axis There is now minimal ST elevation inferior leads QT has lengthened Confirmed by MD LYNDSEY, NANCY ([id number]) on 09/06/2018 6:41:59 AM Performing Organization Address City/State/Zipcode Phone Number [facility] * Troponin I (09/01/2018 3:24 PM CDT) Only the most recent of 2 results within the time period is included. Troponin I 1.73 (HH) 0.00 - 0.03 ng/mL [facility] Specimen Blood Narrative Performed At Troponin I (TnI) levels must be interpreted in the context of the presenting [facility] symptoms and the clinical findings. Elevated TnI levels indicate myocardial [facility] damage, but are not specific for ischemic heart disease. Elevated TnI levels are seen in patients with other cardiac conditions (including myocarditis and congestive heart failure), and slight TnI elevations occur in patients with other conditions, including sepsis, renal failure, acidosis, acute neurological disease, and persistent tachyarrhythmia. Performing Organization Address City/[facility] Phone Number [facility] [address] [place] [address] MEDICAL CENTER * Limited 2D Echocardiogram (09/01/2018 2:51 PM CDT) Ejection Fraction [facility] Specimen Narrative Performed At Transthoracic Echocardiography Report (TTE) [facility] Demographics [facility] Patient Name BJ ROJAS Date of Study 09/01/2018 MARIA LUISA [id number] Male Visit Number [id number] Room Number 2C22 Number Date of Birth1965Referring Physician Arik Moreno 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 Clinical History s/p ACB 08/31/18, Anemia, HTN, Former smoker HGB 10.1 HCT 29.7 % Height: 70 inches Weight: 87.09 kg (192 lbs) BSA: 2.05 m^2 BMI: 27.55 kg/m^2 HR: 66 bpm BP: 122/63 mmHg Summary The LV endocardium is adequately visualized. The left ventricle is chamber size (by vol index) is normal (male - LVED vol - 34-74ml/m2). LV septal thickness is normal (0.6-1.1cm). LV posterior wall thickness is normal (0.6-1.1cm) . All of the LV segments contract normally . Septal motion is abnormal, likely related to prior cardiac surgery . LVEF by Hurley's method of disk assessment is normal (55-60%) . Diastolic function not assessed in this study. RV chamber size is mildly enlarged . Global RV systolic function is moderately reduced . Mild tricuspid regurgitation. Otherwise normal structure and function. Estimated PA pressures are 20-25mmHg plus RA pressure. Signature Findings Technical Quality: Adequate visualization Rhythm/BPRegular sinus rhythm during the exam. Left Ventricle The LV endocardium is adequately visualized. The left ventricle is chamber size (by vol index) is normal (male - LVED vol - 34-74ml/m2). LV septal thickness is normal (0.6-1.1cm). LV posterior wall thickness is normal (0.6-1.1cm) . All of the LV segments contract normally . Septal motion is abnormal, likely related to prior cardiac surgery . LVEF by Hurley's method of disk assessment is normal (55-60%) . Diastolic function not assessed in this study. Left AtriumLA size is mildly enlarged (35-41 ml/m2) . Right VentricleRV chamber size is mildly enlarged . Global RV systolic function is moderately reduced . Right Atrium RA size is mildly dilated. Atrial SeptumNormal interatrial septum by available views. Aortic Valve Normal AoV structure and function by limited views and Doppler. Mitral Valve No evidence of mitral regurgitation. Normal structure and function by limited views and doppler. Tricuspid ValveMild tricuspid regurgitation. Otherwise normal structure and function. Estimated PA pressures are 20-25mmHg plus RA pressure. Pulmonic Valve Mild pulmonary regurgitation. Otherwise normal structure and function by limited views and doppler. AortaAortic root size (SInus of Valsalva diameter) is normal . The aortic sinotubular junction appears normal . PericardiumNo significant pericardial effusion is visualized. IVC/SVC/PA/PV/PleuralThe estimated RA pressure by IVC dynamics indeterminate as patient is mechanically ventilated. Chambers/Structures Left Atrium LA Volume: 81.99 ml LA Area: 24.63 cm^2 LA Vol. Index: 40 ml/m^2 Left Ventricle LVIDd: 4.61 cm LVIDs: 2.69 cm LV Septum Diastolic: 1.19 cm LV PW Diastolic: 1.2 cm LV FS: 41.7 % LVEDV Hurley's:107.77 ml LVESV Hurley's:43.77 mlLVEDVI: 53 ml/m^2 LVEF Hurley's: 59.4 %LVESVI: 21 ml/m^2 LVOT Diameter: 2.16 cm Right Ventricle RV Diast Dim.: 3.6 cm Doppler/Quantitative Measurements LVOT LVOT Diameter: 2.16 cm LVOT Area: 3.66 cm^2 Tricuspid Valve TR Velocity: 1.96 m/s TR Gradient: 15.37 mmHg Pulmonic Valve Peak Velocity: 0.97 m/s Peak Gradient: 3.8 mmHg Mean Velocity: 0.61 m/s Mean Gradient: 1.48 mmHg NM ED Velocity: 1.31 m/s Procedure Note Interface, External Ris In - 09/02/2018 8:38 AM CDT Transthoracic Echocardiography Report (TTE) Demographics Patient Name BJ ROJAS Date of Study 09/01/2018 MARIA LUISA Gender Male Visit Number [id number] Race Unknown Room Number 2C22 Number Date of 1965 Referring Physician Arik Moreno Age 53 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 Clinical History s/p ACB 08/31/18, Anemia, HTN, Former smoker HGB 10.1 HCT 29.7 % Height: 70 inches Weight: 87.09 kg (192 lbs) BSA: 2.05 m^2 BMI: 27.55 kg/m^2 HR: 66 bpm BP: 122/63 mmHg Summary The LV endocardium is adequately visualized. The left ventricle is chamber size (by vol index) is normal (male - LVED vol - 34-74ml/m2). LV septal thickness is normal (0.6-1.1cm). LV posterior wall thickness is normal (0.6-1.1cm) . All of the LV segments contract normally . Septal motion is abnormal, likely related to prior cardiac surgery . LVEF by Hurley's method of disk assessment is normal (55-60%) . Diastolic function not assessed in this study. RV chamber size is mildly enlarged . Global RV systolic function is moderately reduced . Mild tricuspid regurgitation. Otherwise normal structure and function. Estimated PA pressures are 20-25mmHg plus RA pressure. Signature Findings Technical Quality: Adequate visualization Rhythm/BP Regular sinus rhythm during the exam. Left Ventricle The LV endocardium is adequately visualized. The left ventricle is chamber size (by vol index) is normal (male - LVED vol - 34-74ml/m2). LV septal thickness is normal (0.6-1.1cm). LV posterior wall thickness is normal (0.6-1.1cm) . All of the LV segments contract normally . Septal motion is abnormal, likely related to prior cardiac surgery . LVEF by Hurley's method of disk assessment is normal (55-60%) . Diastolic function not assessed in this study. Left Atrium LA size is mildly enlarged (35-41 ml/m2) . Right Ventricle RV chamber size is mildly enlarged . Global RV systolic function is moderately reduced . Right Atrium RA size is mildly dilated. Atrial Septum Normal interatrial septum by available views. Aortic Valve Normal AoV structure and function by limited views and Doppler. Mitral Valve No evidence of mitral regurgitation. Normal structure and function by limited views and doppler. Tricuspid Valve Mild tricuspid regurgitation. Otherwise normal structure and function. Estimated PA pressures are 20-25mmHg plus RA pressure. Pulmonic Valve Mild pulmonary regurgitation. Otherwise normal structure and function by limited views and doppler. Aorta Aortic root size (SInus of Valsalva diameter) is normal . The aortic sinotubular junction appears normal . Pericardium No significant pericardial effusion is visualized. IVC/SVC/PA/PV/Pleural The estimated RA pressure by IVC dynamics indeterminate as patient is mechanically ventilated. Chambers/Structures Left Atrium LA Volume: 81.99 ml LA Area: 24.63 cm^2 LA Vol. Index: 40 ml/m^2 Left Ventricle LVIDd: 4.61 cm LVIDs: 2.69 cm LV Septum Diastolic: 1.19 cm LV PW Diastolic: 1.2 cm LV FS: 41.7 % LVEDV Hurley's:107.77 ml LVESV Hurley's:43.77 ml LVEDVI: 53 ml/m^2 LVEF Hurley's: 59.4 % LVESVI: 21 ml/m^2 LVOT Diameter: 2.16 cm Right Ventricle RV Diast Dim.: 3.6 cm Doppler/Quantitative Measurements LVOT LVOT Diameter: 2.16 cm LVOT Area: 3.66 cm^2 Tricuspid Valve TR Velocity: 1.96 m/s TR Gradient: 15.37 mmHg Pulmonic Valve Peak Velocity: 0.97 m/s Peak Gradient: 3.8 mmHg Mean Velocity: 0.61 m/s Mean Gradient: 1.48 mmHg NM ED Velocity: 1.31 m/s Performing Organization Address City/[facility]/Zipcode Phone Number [facility] * Oxygen saturation, measured (09/01/2018 1:10 PM CDT) Only the most recent of 3 results within the time period is included. O2 Saturation (Measured) 76.6 % [facility] Specimen Blood Performing Organization Address City/[facility]/Zipcode Phone Number [facility] [address] [place] [address] MED[facility]ENTER * Manual Differential (09/01/2018 10:31 AM CDT) % Neutros 83 % [facility] % Lymphs 4 % [facility] % Monos 2 % [facility] % Bands 11 (H) 0 - 10 % [facility] # Neutros 8.38 (H) 1.78 - 5.38 K/ul [facility] # Lymphs 0.40 (L) 1.32 - 3.57 K/ul [facility] # Monos 0.20 (L) 0.30 - 0.82 K/uL [facility] # Bands 1.11 (H) 0.00 - 0.80 K/uL [facility] Total Counted 100 [facility] Platelet Morphology Normal [facility] Smudge Cells Present [facility] Anisocytosis 2+ moderate [facility] Microcytes 2+ moderate [facility] Poikilocytes 2+ moderate [facility] Ovalocytes 1+ few [facility] Rico Cells 1+ few [facility] Platelet Conc Decreased [facility] Specimen Blood Narrative Performed At Received comment: [facility] User comments: [facility] Slide comments: Performing Organization Address City/[facility] [place] [address] [phone] [place] [address] * PT/aPTT (09/01/2018 10:31 AM CDT) Protime 17.5 (H) 11.7 - 14.7 seconds [facility] INR 1.4 <=5.9 [facility] PTT 38.1 (H) 22.5 - 36.0 seconds [facility] Specimen Blood Narrative Performed At RECOMMENDED COUMADIN/WARFARIN INR THERAPY RANGES [facility] STANDARD DOSE: 2.0 - 3.0 Includes: PROPHYLAXIS for venous thrombosis, [facility] systemic embolization; TREATMENT for venous thrombosis and/or pulmonary embolus. HIGH RISK: Target INR is 2.5-3.5 for patients with mechanical heart valves. Performing Organization Address [facility] Phone Number [place] [phone] * Calcium, Ionized (09/01/2018 10:31 AM CDT) Only the most recent of 10 results within the time period is included. Calcium, Ion 1.12 1.12 - 1.27 mmol/L [facility] pH, Blood 7.21 [facility] Specimen Blood Performing Organization Address City/[facility] [place] [address] [phone] [place] [address] * Potassium-Stat Lab (09/01/2018 9:29 AM CDT) Only the most recent of 13 results within the time period is included. Potassium 4.0 3.6 - 5.5 meq/L [facility] Specimen Blood, Arterial Performing Organization Address City/[facility] Phone Number [address] [address] [facility] * Sodium Na-Stat Lab (09/01/2018 9:29 AM CDT) Only the most recent of 13 results within the time period is included. Sodium 145 135 - 148 meq/L [facility] Specimen Blood, Arterial Performing Organization Address [facility] Phone Number [address] * Glucose-Stat Lab (09/01/2018 9:29 AM CDT) Only the most recent of 13 results within the time period is included. Glucose 218 (H) 70 - 110 mg/dL [facility] Specimen Blood, Arterial Performing Organization Address [facility] Phone Number [address] * HGB/HCT (H&H)-Stat Lab (09/01/2018 9:29 AM CDT) Only the most recent of 14 results within the time period is included. Hemoglobin 10.2 (L) 13.0 - 16.8 g/dL [facility] Hematocrit 30.0 (L) 40.0 - 50.0 % [facility] Specimen Blood, Arterial Performing Organization Address City/[facility] Phone Number [address] * Transfuse Leuko-Red RBC (09/01/2018 8:17 AM CDT) Only the most recent of 8 results within the time period is included. * Transfuse Leuko-Red PLT (09/01/2018 7:21 AM CDT) Only the most recent of 4 results within the time period is included. * Thromboelastograph (TEG) (09/01/2018 7:17 AM CDT) Only the most recent of 4 results within the time period is included. TEG Activated Clotting 9.3 (H) 4.0 - 7.0 minutes [facility] TEG Fibrinogen Activity 64.8 61.0 - 73.0 degrees [facility] TEG Platelet Aggregation 58.2 55.0 - 65.0 MM [facility] TEG-H Activated Clotting 7.5 (H) 4.0 - 7.0 minutes [facility] Time [facility] TEG-H Fibrinogen Activity 69.5 61.0 - 73.0 degrees [facility] TEG-H Platelet 55.5 55.0 - 65.0 MM [facility] Aggregation [facility] Specimen Blood Performing Organization Address City/[facility] [place] [address] [facility] * aPTT (09/01/2018 7:17 AM CDT) Only the most recent of 5 results within the time period is included. PTT 51.5 (H) 22.5 - 36.0 seconds [facility] Specimen Blood Performing Organization Address [facility] [place] [address] [phone] [place] [address] * Prothrombin time/INR (09/01/2018 7:17 AM CDT) Only the most recent of 6 results within the time period is included. Protime 18.2 (H) 11.7 - 14.7 seconds [facility] INR 1.5 <=5.9 [facility] Specimen Blood Narrative Performed At RECOMMENDED COUMADIN/WARFARIN INR THERAPY RANGES [facility] STANDARD DOSE: 2.0 - 3.0 Includes: PROPHYLAXIS for venous thrombosis, [facility] systemic embolization; TREATMENT for venous thrombosis and/or pulmonary embolus. HIGH RISK: Target INR is 2.5-3.5 for patients with mechanical heart valves. Performing Organization Address City/[facility] Phone Number [address] [address] [facility] * Fibrinogen (09/01/2018 7:17 AM CDT) Only the most recent of 5 results within the time period is included. Fibrinogen 198 (L) 225 - 434 mg/dl [facility] Specimen Blood Performing Organization Address [facility] Phone Number [address] [address] [facility] * Platelet count (09/01/2018 7:17 AM CDT) Only the most recent of 3 results within the time period is included. Platelets 117 (L) 150 - 450 K/CU MM [facility] Specimen Blood Performing Organization Address [facility] Phone Number [address] [phone] [facility] * Transfuse cryoprecipitate (09/01/2018 6:35 AM CDT) Only the most recent of 2 results within the time period is included. * Prepare RBC (08/31/2018 11:57 PM CDT) CROSSMATCH COMPATIBLE SAFETRACE TX Unit ABO A Pos SAFETRACE TX UNIT NUMBER [id number] [place]AF[place] TX Status RETURNED FROM ISSUE SAFETRACE TX Blood Bank Product RED BLOOD CELLS SAFETRACE TX PRODUCT CODE [id number] SAFETRACE TX CROSSMATCH COMPATIBLE SAFETRACE TX Unit ABO A Pos SAFETRACE TX UNIT NUMBER [id number] SAFETRACE TX Status RETURNED FROM ISSUE SAFETRACE TX Blood Bank Product RED BLOOD CELLS SAFETRACE TX PRODUCT CODE [id number] SAFETRACE TX CROSSMATCH COMPATIBLE SAFETRACE TX Unit ABO A Pos SAFETRACE TX UNIT NUMBER [id number] SAFETRACE TX Status RETURNED FROM ISSUE SAFETRACE TX Blood Bank Product RED BLOOD CELLS SAFETRACE TX PRODUCT CODE [id number] SAFETRACE TX CROSSMATCH COMPATIBLE SAFETRACE TX Unit ABO A Pos SAFETRACE TX UNIT NUMBER [id number] SAFETRACE TX Status RETURNED FROM ISSUE SAFETRACE TX Blood Bank Product RED BLOOD CELLS SAFETRACE TX PRODUCT CODE [id number] SAFETRACE TX Performing Organization Address [facility] Phone Number [place] * Hemoglobin and hematocrit (08/31/2018 11:16 PM CDT) Hemoglobin 9.2 (L) 13.7 - 17.5 GM/DL [facility] Hematocrit 27.9 (L) 40.1 - 51.0 % [facility] Specimen Blood Performing Organization Address City/[facility] Phone Number [address] * Creatine Kinase (CK), Total and MB (08/31/2018 11:16 PM CDT) Only the most recent of 2 results within the time period is included. Total CK 1,035 (H) 29 - 200 U/L [facility] CK-MB 17.7 (H) 0.0 - 6.6 ng/mL [facility] MB Relative Index 1.7 % [facility] Specimen Blood Narrative Performed At CK-MB Reference Range: [facility] <6.7Normal [facility] 6.7-10.0Borderline >10.0 Abnormal Performing Organization Address City/[facility] Phone Number [address] * Sodium (08/31/2018 10:06 PM CDT) Sodium 145 136 - 145 meq/L [facility] Specimen Blood Performing Organization Address [facility] Phone Number [address] * Potassium (08/31/2018 10:06 PM CDT) Potassium 4.5Comment: Specimen 3.5 - 5.1 meq/L [facility] moderately hemolyzed [facility] Specimen Blood Performing Organization Address City/[facility] Phone Number [address] * Glucose (08/31/2018 10:06 PM CDT) Glucose 162 (H) 70 - 105 mg/dL [facility] Specimen Blood Performing Organization Address City/[facility] Phone Number [facility] [address] [address] [facility] * POC ACTIVATED CLOTTING TIME (08/31/2018 2:39 PM CDT) Only the most recent of 11 results within the time period is included. Activated Clotting Time 472Comment: TESTED AT [facility] sec [address] Specimen Blood Performing Organization Address City/State/Zipcode Phone Number [place] [phone] [place] [address] * EDGAR (08/31/2018 1:36 PM CDT) Narrative Performed At Kenrick Avalos MD 08/31/20188:41 PM EDGAR Date: 08/31/2018 1:36 PM Sex: Male Location: OR Examiner: Merrill Woodruff MD Gordon, Katherine L., MD IntubatedSedated Patient screened for esoph disease: Yes Insertion: easy Probe Type: multiplane Modalities: 2D, CFM, CWD and PWD Pre Intervention Summary: 53M for ACB Aorta: No aneurysm, no dissection, no mobile plaques AV: trileaflet morphology, no aortic stenosis, no aortic regurgitation LV: normal chamber size , no LVH, normal systolic function (EF 45-50% by Hurley's), no RWMA, no thrombus MV: normal morphology, no mitral regurgitation, no mitral stenosis LA: no SULLY thrombus PV: limited visualization RV: moderately enlarged chamber size, normal function, no thrombus TV: normal morphology, trace tricuspid regurgitation RA: no thrombus No PFO by color dopper flow All findings communicated to surgical team. Post Intervention Summary:S/p ACB x3, on Epi 2, norepi 5 Normal LV function, no RWMA, EF 50-55% RV function normal No MR/MS, No AI/, mild TR No pericardial effusion or aortic dissection Procedure Note Kenrick Avalos MD - 08/31/2018 1:36 PM CDT EDGAR Date: 08/31/2018 1:36 PM Sex: Male Location: OR Examiner: Merrill Woodruff MD Gordon, Katherine L., MD Intubated Sedated Patient screened for esoph disease: Yes Insertion: easy Probe Type: multiplane Modalities: 2D, CFM, CWD and PWD Pre Intervention Summary: 53M for ACB Aorta: No aneurysm, no dissection, no mobile plaques AV: trileaflet morphology, no aortic stenosis, no aortic regurgitation LV: normal chamber size , no LVH, normal systolic function (EF 45-50% by Hurley's), no RWMA, no thrombus MV: normal morphology, no mitral regurgitation, no mitral stenosis LA: no SULLY thrombus PV: limited visualization RV: moderately enlarged chamber size, normal function, no thrombus TV: normal morphology, trace tricuspid regurgitation RA: no thrombus No PFO by color dopper flow All findings communicated to surgical team. Post Intervention Summary: S/p ACB x3, on Epi 2, norepi 5 Normal LV function, no RWMA, EF 50-55% RV function normal No MR/MS, No AI/, mild TR No pericardial effusion or aortic dissection * XR chest 2 views (08/30/2018 1:55 PM CDT) Specimen Narrative Performed At FINAL REPORT [facility] Chest, PA and lateral. History: Preoperative. Comparison: None available. Discussion:The cardiomediastinal silhouette and pulmonary vasculature are within normal limits. The lungs are clear without evidence of consolidation or effusion.There are no acute osseous abnormalities. The soft tissues are unremarkable. IMPRESSION: No acute cardiopulmonary abnormality. Signed: Gurmeet Pastor MD Report Verified Date/Time:08/30/2018 14:01:04 Reading Location: [address] Radiology Reading Room Procedure Note Interface, External Ris In - 08/30/2018 2:03 PM CDT FINAL REPORT Chest, PA and lateral. History: Preoperative. Comparison: None available. Discussion: The cardiomediastinal silhouette and pulmonary vasculature are within normal limits. The lungs are clear without evidence of consolidation or effusion. There are no acute osseous abnormalities. The soft tissues are unremarkable. IMPRESSION: No acute cardiopulmonary abnormality. Signed: Gurmeet Pastor MD Report Verified Date/Time: 08/30/2018 14:01:04 Reading Location: [address] Radiology Reading Room Performing Organization Address City/State/Zipcode Phone Number [facility] * Urinalysis w/ Microscopic (08/30/2018 12:41 PM CDT) Color, UA Yellow [facility] Clarity, UA Clear [facility] Specific Orange, UA 1.019 1.001 - 1.035 [facility] pH, UA 6.5 5.0 - 8.0 [facility] Protein, UA 20 mg/dL (A) Negative [facility] Glucose, UA Negative Negative [facility] Ketones, UA Negative Negative [facility] Bilirubin, UA Negative Negative [facility] Blood, UA Negative Negative [facility] Nitrite, UA Negative Negative [facility] Leukocytes, UA Negative Negative [facility] Urobilinogen, UA 0.2 0.2 - 1.0 mg/dL [facility] RBC, UA 1 /HPF [facility] WBC, UA <1 /HPF [facility] Mucus Many [facility] Squam Epithel, UA <1 /HPF [facility] Hyaline Casts, UA 1 /LPF [facility] Specimen Source [facility] Specimen Urine Performing Organization Address City/[facility]/Zipcode Phone Number [facility] [address] [place] [address] [facility] [place] * Type and screen, automated (08/30/2018 12:40 PM CDT) Ab Scrn NEGATIVEComment: Performed on [facility] Specimen Blood Performing Organization Address City/[facility]/Zipcode Phone Number [place] [address] [facility] * ABORH, manual (08/30/2018 12:40 PM CDT) ABO Grouping A [facility] Rh Factor POS [facility] Specimen Blood Performing Organization Address City/[facility]/[place] [address] [facility] * Hemoglobin A1c (08/30/2018 12:40 PM CDT) Hemoglobin A1C 5.6 4.3 - 6.1 % [facility] Specimen Blood Performing Organization Address City/[facility]/[place] [address] [phone] [place] [address] * Comprehensive metabolic panel (08/30/2018 12:40 PM CDT) Protein, Total 8.2 6.0 - 8.3 gm/dL [facility] Albumin 4.7 3.5 - 5.0 g/dL [facility] Alkaline Phosphatase 103 40 - 150 U/L [facility] Total Bilirubin 0.6 0.2 - 1.2 mg/dL [facility] Sodium 143 136 - 145 meq/L [facility] Potassium 4.1 3.5 - 5.1 meq/L [facility] Chloride 105 98 - 107 meq/L [facility] CO2 30 (H) 22 - 29 meq/L [facility] BUN 17 7 - 21 mg/dL [facility] Creatinine 1.04 0.57 - 1.25 mg/dL [facility] Glucose 85 70 - 105 mg/dL [facility] Calcium 10.3 (H) 8.4 - 10.2 mg/dL [facility] AST 23 5 - 34 U/L [facility] ALT 29 6 - 55 U/L [facility] EGFR 75Comment: ESTIMATED GFR IS mL/min/1.73 sq m [facility] NOT ACCURATE CREATININE [facility] CLEARANCE IN PREDICTING GLOMERULAR FILTRATION RATE. ESTIMATED GFR IS NOT APPLICABLE FOR DIALYSIS PATIENTS. Specimen Blood Performing Organization Address City/State/Zipcode Phone Number [facility] [address], [place] [id number] [facility] after 05/19/2018 Insurance Payer Benefit Subscriber ID Type Phone Address Plan / Group [facility] [place] xxxxxxxxx HMO/POS CARE POS SELECT CHOICE Advance Directives For more information, please contact: [address] [phone] Date Inactivated Comments Code Status Date Activated Full Code 08/31/2018 8:01 PM This code status was determined by: Patient 08/31/2018 8:01 PM Full Code 08/31/2018 8:01 AM This code status was determined by: Patient
--- OUTSIDE RECORDS SUMMARY | 2019-05-20 07:19 | XMS REPORT ---
[facility] Address Unknown Phone Unavailable Care Team Providers Care Middleware Developer Name Role Phone CAPRICE GARCIA Unavailable Unavailable GYPSY TATE Unavailable Unavailable Payers Payer Name Policy Type Policy Number Effective Date Expiration Date Problems This patient has no known problems. Allergies, Adverse Reactions, Alerts Allergy Name Allergy Type Status Severity Reaction(s) Onset Date Inactive Date Treating Clinician Comments No Known Allergies DA Active U 2014-12-20 00:00:00 Medications This patient has no known medications. 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 Left heart catheter PREOP FOR LEFT HEART CATHETERIZATION [id number] COMPARISON: None FINDINGS: TUBES and LINES: Sternal wires. LUNGS: Lungs are well inflated. Lungs are clear. There is no evidence of pneumonia or pulmonary edema. PLEURA: No pleural effusion or pneumothorax. HEART AND MEDIASTINUM: The cardiomediastinal silhouette is unremarkable. BONES AND SOFT TISSUES: No acute osseous lesion. Soft tissues are unremarkable. UPPER ABDOMEN: No free air under the diaphragm. IMPRESSION: No acute thoracic abnormality. Signed by: Dr. Cathleen Maciel M.D. on 05/18/2019 1:41 PM Dictated By: CATHLEEN MACIEL MD, MD 134 Transcribed By: KRISTIE on 05/18/19 134 COPY TO: CAPRICE GARCIA MD - XR CHEST 2 V 2019-04-20 10:34:00 FAX: Aris Wong MD [phone] [place]: O St: REG FAX: Marline Velasquez [phone] Name: RAI PALM [facility] : 1965 Age/S: 53/M [address] [facility] Unit #: [id number] Loc: [place] [address] Phys: Marline Luis Acct: [id number] Dis Date: Status: REG RCR PHONE #: [phone] Exam Date: 04/20/2019 1021 FAX #: [phone] Reason: CAD EXAMS: CPT CODE: [id number] XR CHEST 2 V 73226 TECHNIQUE - XR CHEST 2 V . COMPARISON: Chest x-ray 11/10/2018 HISTORY: 53 years Male CAD FINDINGS: Lungs: No nodules. No air space or interstitial lung disease. Lungs are normal in volume. Mediastinum and mirela: No enlargement or other mass. Median sternotomy. Cardiovascular structures: No cardiomegaly. No abnormalities in vascular structures. Pleura/CP angles: Clear. No pneumothorax. Bones: No osseous abnormalities. Soft tissues: No abnormalities. Tubes and lines: None. Other: None. IMPRESSION: No acute cardiopulmonary abnormalities. at 1034 Reported and signed by: Lucien Costello M.D. CC: Aris Aguilar MD; Marline Luis Technologist: RT Tameka(Jose) Trnscrd Date/Time/By: 04/20/2019 (1034) : By: Maverick Orig Print D/T: S: 04/20/2019 (1037) PAGE 1 Signed Report MUGA, CARD IMAGING, EQ, REST, WM, EF 2018-09-05 16:04:00 FINAL REPORT PROCEDURE: Resting RADIONUCLIDE VENTRICULOGRAM (MUGA Scan) CPT CODE: [id number] INDICATION: CAD I25.10, CABG 09/01/18 PROTOCOL: Autologous [...] 2. No prior study. Signed: Daphnie Felipe MDReport Verified Date/Time: 09/05/2018 16:04:18 C METABOLIC PANEL 2018-09-05 07:05:00 SODIUM (BEAKER) (test mqeu=097) 137 meq/L 136-145 POTASSIUM (BEAKER) (test urya=206) 3.6 meq/L 3.5-5.1 CHLORIDE (BEAKER) (test kgqj=744) 105 meq/L 98-107 CO2 (BEAKER) (test frtz=245) 25 meq/L 22-29 BLOOD UREA NITROGEN (BEAKER) (test ajzd=985) 16 mg/dL 7-21 CREATININE (BEAKER) (test csyo=037) 0.72 mg/dL 0.57-1.25 GLUCOSE RANDOM (BEAKER) (test tkng=092) 126 mg/dL 70-105 CALCIUM (BEAKER) (test iqfc=958) 8.4 mg/dL 8.4-10.2 EGFR (BEAKER) (test rwkn=9318) 115 mL/min/1.73 sq m ESTIMATED GFR IS NOT ACCURATE CREATININE CLEARANCE IN PREDICTING GLOMERULAR FILTRATION RATE. ESTIMATED GFR IS NOT APPLICABLE FOR DIALYSIS PATIENTS. RAD, CHEST, 1 VIEW, NON [id number] 06:35:00Reason for exam:->s/p CAB with chest drainsShould this be performed at the bedside?->YesFINAL REPORT RAD, CHEST, 1 VIEW, NON DEPT INDICATION: s/p CAB with chest drains COMPARISON: Prior day's exam FINDINGS: Portable frontal view of the chest. IMPRESSION: Lungs and pleura: Unchanged airspace and pleural opacities. Again seen is a tiny right apical pneumothorax. Possible trace left apical pneumothorax.Heart and mediastinum: Stable contours. Stable surgical ch anges.Additional findings: None. Signed: Nathen Powell Verified D ate/Time: 09/05/2018 06:35:19 Reading Location: [address] Room 06: 35 AM CBC (HEMOGRAM ONLY)2018-09-05 05:57:00* Test Item Value Reference Range Comments WHITE BLOOD CELL COUNT (BEAKER) (test vxdq=083) 10.9 K/ L 3.5-10.5 RED BLOOD CELL COUNT (BEAKER) (test esyh=968) 2.74 M/ L 4.63-6.08 HEMOGLOBIN (BEAKER) (test lzdd=939) 8.4 GM/DL 13.7-17.5 HEMATOCRIT (BEAKER) (test xzpw=504) 25.2 % 40.1-51.0 MEAN CORPUSCULAR VOLUME (BEAKER) (test hvnb=756) 92.0 fL 79.0-92.2 MEAN CORPUSCULAR HEMOGLOBIN (BEAKER) (test ilrj=301) 30.7 pg 25.7-32.2 MEAN CORPUSCULAR HEMOGLOBIN CONC (BEAKER) (test gwmj=978) 33.3 GM/DL 32.3-36.5 RED CELL DISTRIBUTION WIDTH (BEAKER) (test zrtm=880) 15.5 % 11.6-14.4 PLATELET COUNT (BEAKER) (test kmky=260) 120 K/CU MM 150-450 MEAN PLATELET VOLUME (BEAKER) (test pplz=903) 11.2 fL 9.4-12.4 NUCLEATED RED BLOOD CELLS (BEAKER) (test igml=810) 0 /100 WBC 0-0 RAD, CHEST, 1 VIEW, NON [id number] 15:58:00Reason for exam:->post ct removalShould this be performed at the bedside?->YesFINAL REPORT Comparison: 09/04/2018 at 7:21 AM TECHNIQUE: Single view of the chest FINDINGS: Tiny right apical pneumothorax is stable. A previously described tiny left apical pneumothorax is not well-seen on the current exam. A left-sided chest tube has been removed. No other significant change. Signed: Haim Rivera Verified Date/Time: 09/04/2018 15:58:13 Reading Location: [address] Reading Room , CHEST, 1 VIEW, NON [id number] 09:03:00Reason for exam:->s/p CAB with chest drainsShould this be performed at the bedside?->Yes FINAL REPORT Chest one view AP 09/04/2018 9:02 AM CLINICAL INDICATION: s/p CAB with chest drains COMPARISON: 09/03/2018 IMPRESSION: There a re tiny biapical pneumothoraces. Bilateral pulmonary opacities suggest a combina tion of interstitial edema and atelectasis. Pneumonia should be excluded clinica lly. There are trace bilateral pleural effusions. Cardiomediastinal contours are stable. There is central pulmonary vasculature congestion. Remaining support ramirez rdware is unchanged in position. Signed: Seipel, Alexis MDReport Verified Date/ Time: 09/04/2018 09:03:30 Reading Location: [facility] C013V Neuro Reading Room C METABOLIC [id number] 07:37:00* Test Item Value Reference Range Comments SODIUM (BEAKER) (test fvyi=089) 137 meq/L 136-145 POTASSIUM (BEAKER) (test ungm=518) 4.3 meq/L 3.5-5.1 Specimen slightly hemolyzed CHLORIDE (BEAKER) (test izbi=024) 105 meq/L 98-107 CO2 (BEAKER) (test fshy=162) 24 meq/L 22-29 BLOOD UREA NITROGEN (BEAKER) (test fpbf=221) 20 mg/dL 7-21 CREATININE (BEAKER) (test ewlr=967) 0.68 mg/dL 0.57-1.25 Specimen slightly hemolyzed GLUCOSE RANDOM (BEAKER) (test nmzi=834) 117 mg/dL 70-105 CALCIUM (BEAKER) (test ppgd=403) 8.6 mg/dL 8.4-10.2 EGFR (BEAKER) (test ajwn=3583) 122 mL/min/1.73 sq m ESTIMATED GFR IS NOT ACCURATE CREATININE CLEARANCE IN PREDICTING GLOMERULAR FILTRATION RATE. ESTIMATED GFR IS NOT APPLICABLE FOR DIALYSIS PATIENTS. Specimen slightly ictericBASIC METABOLIC [id number] 11:06:00* Test Item Value Reference Range Comments SODIUM (BEAKER) (test join=895) 139 meq/L 136-145 POTASSIUM (BEAKER) (test fivg=267) 3.5 meq/L 3.5-5.1 CHLORIDE (BEAKER) (test rogy=715) 104 meq/L 98-107 CO2 (BEAKER) (test unqv=817) 27 meq/L 22-29 BLOOD UREA NITROGEN (BEAKER) (test fgex=082) 24 mg/dL 7-21 CREATININE (BEAKER) (test bvgm=344) 0.78 mg/dL 0.57-1.25 GLUCOSE RANDOM (BEAKER) (test plte=429) 119 mg/dL 70-105 CALCIUM (BEAKER) (test acjm=452) 8.7 mg/dL 8.4-10.2 EGFR (BEAKER) (test yqtm=1932) 105 mL/min/1.73 sq m ESTIMATED GFR IS NOT ACCURATE CREATININE CLEARANCE IN PREDICTING GLOMERULAR FILTRATION RATE. ESTIMATED GFR IS NOT APPLICABLE FOR DIALYSIS PATIENTS. Specimen slightly ictericCBC W/PLT COUNT & AUTO [id number] 10:48:00 * Test Item Value Reference Range Comments WHITE BLOOD CELL COUNT (BEAKER) (test tqlo=770) 12.2 K/ L 3.5-10.5 RED BLOOD CELL COUNT (BEAKER) (test rzwn=112) 2.88 M/ L 4.63-6.08 HEMOGLOBIN (BEAKER) (test vtst=737) 8.7 GM/DL 13.7-17.5 HEMATOCRIT (BEAKER) (test txgo=263) 26.2 % 40.1-51.0 MEAN CORPUSCULAR VOLUME (BEAKER) (test clfm=620) 91.0 fL 79.0-92.2 MEAN CORPUSCULAR HEMOGLOBIN (BEAKER) (test bktu=641) 30.2 pg 25.7-32.2 MEAN CORPUSCULAR HEMOGLOBIN CONC (BEAKER) (test rljw=215) 33.2 GM/DL 32.3-36.5 RED CELL DISTRIBUTION WIDTH (BEAKER) (test pjqj=229) 16.0 % 11.6-14.4 PLATELET COUNT (BEAKER) (test zmkx=745) 81 K/CU MM 150-450 MEAN PLATELET VOLUME (BEAKER) (test niev=342) 11.4 fL 9.4-12.4 NUCLEATED RED BLOOD CELLS (BEAKER) (test bzqn=072) 0 /100 WBC 0-0 NEUTROPHILS RELATIVE PERCENT (BEAKER) (test txub=642) 87 % LYMPHOCYTES RELATIVE PERCENT (BEAKER) (test ntvn=740) 4 % MONOCYTES RELATIVE PERCENT (BEAKER) (test wayw=017) 7 % EOSINOPHILS RELATIVE PERCENT (BEAKER) (test lcfr=662) 1 % BASOPHILS RELATIVE PERCENT (BEAKER) (test srpr=395) 0 % NEUTROPHILS ABSOLUTE COUNT (BEAKER) (test hacs=713) 10.63 K/ L 1.78-5.38 LYMPHOCYTES ABSOLUTE COUNT (BEAKER) (test tkje=115) 0.48 K/ L 1.32-3.57 MONOCYTES ABSOLUTE COUNT (BEAKER) (test ttpd=198) 0.89 K/ L 0.30-0.82 EOSINOPHILS ABSOLUTE COUNT (BEAKER) (test xtqh=449) 0.08 K/ L 0.04-0.54 BASOPHILS ABSOLUTE COUNT (BEAKER) (test ihyn=141) 0.02 K/ L 0.01-0.08 IMMATURE GRANULOCYTES-RELATIVE PERCENT (BEAKER) (test ppkm=2585) 1 % 0-1 RAD, CHEST, 1 VIEW, NON [id number] 09:56:00Reason for exam:->s/p CAB with chest drainsShould this be performed at the bedside?->YesFINAL REPORT AP chest HISTORY: Bypass COMPARISON: 09/02/2018 IMPRESSION:Supportive lines unchanged. Cardiomegaly. Diffuse interstitial edema, improved. Left basilar atelectasis persists. Right basilar atelectasis appears improved. No pneumothorax. Signed: Gurmeet Pastor MDReport Verified Date/Time: 09/03/2018 09:56:23 Reading Location: [address] Radiology Reading Room , CHEST, 1 VIEW, NON [id number] 18:36:00Reason for exam:->post ACB, chest tube in place, SOBShould this be performed at the bedside?->YesFINAL REPORT Comparison: 09/02/2018 at 10:55 AM TECHNIQUE: Single view of the chest FINDINGS: A right internal jugular central line has been removed. No other significant change. Remaining support lines and tubes are stable. Bilateral interstitial and airspace opacities and trace pleural effusions are stable. No large pneumothoraces bilaterally. Signed: Haim Rivera MDReport V erified Date/Time: 09/02/2018 18:36:13 Reading Location: [facility] [id number] 11:47:00* Test Item Value Reference Range Comments PROCALCITONIN (BEAKER) (test sebh=7093) 0.84 ng/mL <0.05 SEPSIS RISK (ng/mL)Low: 0.05-0.50Intermediate: 0.51-2.00High: > =2.01RAD, CHEST, 1 VIEW, NON [id number] 11:32:00Reason for exam:->Eval R chest decreased breath soundsShould this be performed at the bedside?->YesFINAL REPORT EXAM: Frontal chest radiograph HISTORY PROVIDED: Evaluate right chest, decreased breath sounds COMPARISON: 09/01/2018 IMPRES JOSE:The endotracheal tube and enteric tube have been removed. The remaining sup port lines and tubes are in unchanged position. Pulmonary vascular congestion as well as bilateral interstitial and airspace opacities are stable to slightly wo rse since the previous examination compatible with pulmonary edema, however pneu monitis should be excluded clinically. There is a small left pleural effusion an d atelectasis/consolidation of the left lower lobe. No discernible pneumothorax. Cardiomediastinal contours are stable. Signed: Caprice Peterson MDReport Veri fied Date/Time: 09/02/2018 11:32:32 Reading Location: [facility] Reading Room - GLUCOSE [id number] 10:35:00* Test Item Value Reference Range Comments POC-GLUCOSE METER (BEAKER) (test mzwu=4978) 110 mg/dL 70-110 TESTED AT [address] [address] POCT-GLUCOSE [id number] 05:54:00* Test Item Value Reference Range Comments POC-GLUCOSE METER (BEAKER) (test xmkn=4329) 127 mg/dL 70-110 TESTED AT [address] [address] [id number] 04:00:00* Test Item Value Reference Range Comments PHOSPHORUS (BEAKER) (test tbnv=242) 2.2 mg/dL 2.3-4.7 [id number] 04:00:00* Test Item Value Reference Range Comments MAGNESIUM (BEAKER) (test mihj=917) 1.7 mg/dL 1.6-2.6 BASIC METABOLIC [id number] 04:00:00* Test Item Value Reference Range Comments SODIUM (BEAKER) (test huce=371) 146 meq/L 136-145 POTASSIUM (BEAKER) (test wwef=609) 4.0 meq/L 3.5-5.1 CHLORIDE (BEAKER) (test gnna=912) 115 meq/L 98-107 CO2 (BEAKER) (test euaj=585) 27 meq/L 22-29 BLOOD UREA NITROGEN (BEAKER) (test rbzn=324) 21 mg/dL 7-21 CREATININE (BEAKER) (test ibxk=581) 0.80 mg/dL 0.57-1.25 GLUCOSE RANDOM (BEAKER) (test vwdb=194) 92 mg/dL 70-105 CALCIUM (BEAKER) (test oyci=170) 8.4 mg/dL 8.4-10.2 EGFR (BEAKER) (test glxp=8523) 102 mL/min/1.73 sq m ESTIMATED GFR IS NOT ACCURATE CREATININE CLEARANCE IN PREDICTING GLOMERULAR FILTRATION RATE. ESTIMATED GFR IS NOT APPLICABLE FOR DIALYSIS PATIENTS. Specimen slightly ictericCBC (HEMOGRAM ONLY)2018-09-02 03:57:00* Test Item Value Reference Range Comments WHITE BLOOD CELL COUNT (BEAKER) (test qqrd=501) 11.0 K/ L 3.5-10.5 RED BLOOD CELL COUNT (BEAKER) (test tjxg=791) 2.80 M/ L 4.63-6.08 HEMOGLOBIN (BEAKER) (test umal=079) 8.6 GM/DL 13.7-17.5 HEMATOCRIT (BEAKER) (test gtgj=577) 24.8 % 40.1-51.0 MEAN CORPUSCULAR VOLUME (BEAKER) (test clmw=250) 88.6 fL 79.0-92.2 MEAN CORPUSCULAR HEMOGLOBIN (BEAKER) (test yyrx=397) 30.7 pg 25.7-32.2 MEAN CORPUSCULAR HEMOGLOBIN CONC (BEAKER) (test svnl=118) 34.7 GM/DL 32.3-36.5 RED CELL DISTRIBUTION WIDTH (BEAKER) (test xnne=648) 15.9 % 11.6-14.4 PLATELET COUNT (BEAKER) (test xttw=073) 68 K/CU MM 150-450 MEAN PLATELET VOLUME (BEAKER) (test zynl=528) 11.0 fL 9.4-12.4 NUCLEATED RED BLOOD CELLS (BEAKER) (test zhlh=937) 0 /100 WBC 0-0 POCT-GLUCOSE [id number] 03:10:00* Test Item Value Reference Range Comments POC-GLUCOSE METER (BEAKER) (test fpvr=9370) 97 mg/dL 70-110 TESTED AT [facility] [address] [facility] [address] POCT-GLUCOSE [id number] 23:28:00* Test Item Value Reference Range Comments POC-GLUCOSE METER (BEAKER) (test koqk=6316) 130 mg/dL 70-110 TESTED AT [address] [address] POCT-GLUCOSE [id number] 23:28:00* Test Item Value Reference Range Comments POC-GLUCOSE METER (BEAKER) (test fzhs=2501) 130 mg/dL 70-110 TESTED AT [address] [address] LACTIC ACID, ARTERIAL, WHOLE [id number] 22:04:00* Test Item Value Reference Range Comments LACTATE BLOOD ARTERIAL (2) (BEAKER) (test rrzg=7966) 1.2 mmol/L 0.5-2.2 Effective 03/05/2016: Units/Reference Range ChangeNew: 0.5-2.2 mmol/L Previous: 5 -20 mg/dLSpecimen slightly ictericCBC W/PLT COUNT & AUTO [id number] 22:01:00* Test Item Value Reference Range Comments WHITE BLOOD CELL COUNT (BEAKER) (test qkqv=750) 12.1 K/ L 3.5-10.5 RED BLOOD CELL COUNT (BEAKER) (test hxxh=883) 2.99 M/ L 4.63-6.08 HEMOGLOBIN (BEAKER) (test dvwb=698) 9.0 GM/DL 13.7-17.5 HEMATOCRIT (BEAKER) (test bhld=809) 26.1 % 40.1-51.0 MEAN CORPUSCULAR VOLUME (BEAKER) (test mkoq=508) 87.3 fL 79.0-92.2 MEAN CORPUSCULAR HEMOGLOBIN (BEAKER) (test ekmm=354) 30.1 pg 25.7-32.2 MEAN CORPUSCULAR HEMOGLOBIN CONC (BEAKER) (test cqxv=342) 34.5 GM/DL 32.3-36.5 RED CELL DISTRIBUTION WIDTH (BEAKER) (test ytqd=329) 15.9 % 11.6-14.4 PLATELET COUNT (BEAKER) (test jnnh=158) 87 K/CU MM 150-450 MEAN PLATELET VOLUME (BEAKER) (test mdjf=612) 11.3 fL 9.4-12.4 NUCLEATED RED BLOOD CELLS (BEAKER) (test oaoc=300) 0 /100 WBC 0-0 BLOOD GAS, [id number] 17:12:00* Test Item Value Reference Range Comments PH ARTERIAL (BEAKER) (test sebj=018) 7.43 7.35-7.45 PCO2 ARTERIAL (BEAKER) (test cxgk=400) 40 mmHg 35-45 PO2 ARTERIAL (BEAKER) (test dela=516) 128 mmHg 80-90 O2 SATURATION ARTERIAL (BEAKER) (test vgnc=435) 98.6 % 96.0-97.0 HCO3 ARTERIAL (BEAKER) (test avth=149) 26 mmol/L 21-29 BASE EXCESS ARTERIAL (BEAKER) (test mzpx=931) 1.5 mmol/L -2.0-3.0 PATIENT TEMPERATURE (BEAKER) (test ldhu=6538) 37.4 C FIO2 (BEAKER) (test bkcq=8819) 60.0 % POCT-GLUCOSE [id number] 17:10:00* Test Item Value Reference Range Comments POC-GLUCOSE METER (BEAKER) (test vikh=2411) 149 mg/dL 70-110 TESTED AT [facility] [address] [facility] [address] TROPONIN [id number] 16:18:00* Test Item Value Reference Range Comments TROPONIN I (BEAKER) (test ewbv=672) 1.73 ng/mL 0.00-0.03 Troponin I (TnI) levels must be interpreted in the context of the presenting sym ptoms and the clinical findings. Elevated TnI levels indicate myocardial damage, but are not specific for ischemic heart disease. Elevated TnI levels are seen in patients with other cardiac conditions (including myocarditis and congestive h eart failure), and slight TnI elevations occur in patients with other conditions , including sepsis, renal failure, acidosis, acute neurological disease, and per sistent tachyarrhythmia.POCT-GLUCOSE [id number] 15:25:00* Test Item Value Reference Range Comments POC-GLUCOSE METER (BEAKER) (test asna=2465) 199 mg/dL 70-110 TESTED AT [facility] [address] [facility] [place] [address] LACTIC ACID, ARTERIAL, WHOLE [id number] 13:40:00* Test Item Value Reference Range Comments LACTATE BLOOD ARTERIAL (2) (BEAKER) (test oqqr=0334) 6.2 mmol/L 0.5-2.2 Effective 03/05/2016: Units/Reference Range ChangeNew: 0.5-2.2 mmol/L Previous: 5 -20 mg/dLBLOOD GAS, [id number] 13:28:00* Test Item Value Reference Range Comments PH ARTERIAL (BEAKER) (test kwly=540) 7.37 7.35-7.45 PCO2 ARTERIAL (BEAKER) (test jmvm=269) 41 mmHg 35-45 PO2 ARTERIAL (BEAKER) (test uvnw=446) 144 mmHg 80-90 O2 SATURATION ARTERIAL (BEAKER) (test opdg=259) 98.8 % 96.0-97.0 HCO3 ARTERIAL (BEAKER) (test txax=803) 23 mmol/L 21-29 BASE EXCESS ARTERIAL (BEAKER) (test spwh=510) -2.0 mmol/L -2.0-3.0 PATIENT TEMPERATURE (BEAKER) (test kpur=1196) 36.1 C FIO2 (BEAKER) (test zddf=5541) 60.0 % OXYGEN SATURATION, [id number] 13:24:00* Test Item Value Reference Range Comments O2 SATURATION (MEASURED) (BEAKER) (test dafi=4436) 76.6 % RAD, CHEST, 1 VIEW, NON [id number] 12:54:00Reason for exam:->lines and tubesShould this be performed at the bedside?->YesFINAL REPORT EXAM: Frontal chest radiograph HISTORY PROVIDED: Lines and tubes COMPARISON: 09/01/2018 at 0622 IMPRESSION:A left thoracostomy tube has been repositioned with the tip projecting over the left upper hemithorax. The remaining support lines and tubes are in unchanged position. There is improved aeration of the left upper lobe. Retrocardiac opacification likely represents a combination of a small left pleural effusion and atelectasis/consolidation of the left lower lobe. There is probably vascular congestion and bilateral interstitial and airspace opacities compatible with edema, however atypical pneu monitis should be excluded clinically. A trace right pleural effusion is suspect ed. No discernible pneumothorax. Cardiomediastinal contours are stable with surg ical clips along the left mediastinum. Median sternotomy wires are again noted. Signed: Caprice Peterson MDReport Verified Date/Time: 09/01/2018 12:54:33 Subha roman [facility] W/PLT COUNT & AUTO [id number] 12:50:00* Test Item Value Reference Range Comments WHITE BLOOD CELL COUNT (BEAKER) (test wcgv=363) 10.1 K/ L 3.5-10.5 RED BLOOD CELL COUNT (BEAKER) (test fhac=632) 3.20 M/ L 4.63-6.08 HEMOGLOBIN (BEAKER) (test edbg=315) 10.1 GM/DL 13.7-17.5 HEMATOCRIT (BEAKER) (test bbgx=235) 29.7 % 40.1-51.0 MEAN CORPUSCULAR VOLUME (BEAKER) (test ghmp=465) 92.8 fL 79.0-92.2 Discordant result compared to previous result; clinical correlation required. MEAN CORPUSCULAR HEMOGLOBIN (BEAKER) (test rgep=787) 31.6 pg 25.7-32.2 MEAN CORPUSCULAR HEMOGLOBIN CONC (BEAKER) (test yeho=918) 34.0 GM/DL 32.3-36.5 RED CELL DISTRIBUTION WIDTH (BEAKER) (test tzun=628) 14.8 % 11.6-14.4 PLATELET COUNT (BEAKER) (test gclp=406) 92 K/CU MM 150-450 MEAN PLATELET VOLUME (BEAKER) (test zuot=795) 11.1 fL 9.4-12.4 NUCLEATED RED BLOOD CELLS (BEAKER) (test fusv=692) 0 /100 WBC 0-0 (CELLAVISION MANUAL DIFF)2018-09-01 12:50:00* Test Item Value Reference Range Comments NEUTROPHILS - REL (CELLAVISION)(BEAKER) (test qfws=3205) 83 % LYMPHOCYTES - REL (CELLAVISION)(BEAKER) (test nqlj=3066) 4 % MONOCYTES - REL (CELLAVISION)(BEAKER) (test ocjh=5543) 2 % BANDS - REL (CELLAVISION)(BEAKER) (test cbce=0044) 11 % 0-10 NEUTROPHILS - ABS (CELLAVISION)(BEAKER) (test ruhl=0344) 8.38 K/ul 1.78-5.38 LYMPHOCYTES - ABS (CELLAVISION)(BEAKER) (test szkc=0090) 0.40 K/ul 1.32-3.57 MONOCYTES - ABS (CELLAVISION)(BEAKER) (test imqw=9299) 0.20 K/uL 0.30-0.82 BANDS - ABS (CELLAVISION)(BEAKER) (test kkxu=2431) 1.11 K/uL 0.00-0.80 TOTAL COUNTED (BEAKER) (test eorj=6919) 100 PLT MORPHOLOGY (BEAKER) (test jeup=723) Normal SMUDGE CELLS (BEAKER) (test zdok=8649) Present ANISOCYTOSIS (BEAKER) (test bvjm=212) 2+ moderate MICROCYTES (BEAKER) (test kprf=011) 2+ moderate POIKILOCYTES (BEAKER) (test mijx=403) 2+ moderate OVALOCYTES (BEAKER) (test tjzq=043) 1+ few ANABEL CELLS (BEAKER) (test tdvi=145) 1+ few PLATELET CONCENTRATION (CELLAVISION)(BEAKER) (test etzk=8472) Decreased Received comment: User comments: Slide comments: [id number] 11:14:00* Test Item Value Reference Range Comments PHOSPHORUS (BEAKER) (test nqof=233) 4.0 mg/dL 2.3-4.7 [id number] 11:14:00* Test Item Value Reference Range Comments MAGNESIUM (BEAKER) (test jfef=567) 1.4 mg/dL 1.6-2.6 BASIC METABOLIC [id number] 11:14:00* Test Item Value Reference Range Comments SODIUM (BEAKER) (test takq=352) 146 meq/L 136-145 POTASSIUM (BEAKER) (test fueh=799) 3.9 meq/L 3.5-5.1 CHLORIDE (BEAKER) (test aqty=984) 114 meq/L 98-107 CO2 (BEAKER) (test onof=260) 17 meq/L 22-29 BLOOD UREA NITROGEN (BEAKER) (test hbqh=585) 17 mg/dL 7-21 CREATININE (BEAKER) (test dzdh=974) 0.99 mg/dL 0.57-1.25 GLUCOSE RANDOM (BEAKER) (test wynx=074) 237 mg/dL 70-105 CALCIUM (BEAKER) (test leqx=115) 8.2 mg/dL 8.4-10.2 EGFR (BEAKER) (test cyzs=2955) 79 mL/min/1.73 sq m ESTIMATED GFR IS NOT ACCURATE CREATININE CLEARANCE IN PREDICTING GLOMERULAR FILTRATION RATE. ESTIMATED GFR IS NOT APPLICABLE FOR DIALYSIS PATIENTS. PT/[id number] 11:04:00* Test Item Value Reference Range Comments PROTIME (BEAKER) (test nruw=987) 17.5 seconds 11.7-14.7 INR (BEAKER) (test akyp=567) 1.4 <=5.9 PARTIAL THROMBOPLASTIN TIME (BEAKER) (test uqqe=214) 38.1 seconds 22.5-36.0 RECOMMENDED COUMADIN/WARFARIN INR THERAPY RANGESSTANDARD DOSE: 2.0 - 3.0 Inclu soraya: PROPHYLAXIS for venous thrombosis, systemic embolization; TREATMENT for melissa ous thrombosis and/or pulmonary embolus.HIGH RISK: Target INR is 2.5-3.5 for pat ients with mechanical heart valves.BLOOD GAS, [id number] 10:38:00* Test Item Value Reference Range Comments PH ARTERIAL (BEAKER) (test jfpq=382) 7.24 7.35-7.45 PCO2 ARTERIAL (BEAKER) (test nxcd=918) 48 mmHg 35-45 PO2 ARTERIAL (BEAKER) (test wqec=292) 104 mmHg 80-90 O2 SATURATION ARTERIAL (BEAKER) (test gfeb=284) 97.4 % 96.0-97.0 HCO3 ARTERIAL (BEAKER) (test okdk=275) 20 mmol/L 21-29 BASE EXCESS ARTERIAL (BEAKER) (test jety=249) -7.5 mmol/L -2.0-3.0 PATIENT TEMPERATURE (BEAKER) (test czap=7557) 34.8 C FIO2 (BEAKER) (test pysz=9699) 70.0 % CALCIUM, [id number] 10:37:00* Test Item Value Reference Range Comments CALCIUM IONIZED (BEAKER) (test rjgd=302) 1.12 mmol/L 1.12-1.27 PH, BLOOD (BEAKER) (test blte=1893) 7.21 CALCIUM, [id number] 09:43:00* Test Item Value Reference Range Comments CALCIUM IONIZED (BEAKER) (test llef=340) 1.12 mmol/L 1.12-1.27 PH, BLOOD (BEAKER) (test djge=5675) 7.27 BLOOD GAS, [id number] 09:42:00* Test Item Value Reference Range Comments PH ARTERIAL (BEAKER) (test jxaa=395) 7.31 7.35-7.45 PCO2 ARTERIAL (BEAKER) (test irzx=911) 41 mmHg 35-45 PO2 ARTERIAL (BEAKER) (test kbkd=415) 213 mmHg 80-90 O2 SATURATION ARTERIAL (BEAKER) (test hrpj=801) 99.4 % 96.0-97.0 HCO3 ARTERIAL (BEAKER) (test dwls=713) 21 mmol/L 21-29 BASE EXCESS ARTERIAL (BEAKER) (test xyoe=572) -5.9 mmol/L -2.0-3.0 PATIENT TEMPERATURE (BEAKER) (test yrqi=5298) 34.4 C FIO2 (BEAKER) (test zykc=4869) 100.0 % GLUCOSE-STAT [id number] 09:42:00* Test Item Value Reference Range Comments GLUCOSE RANDOM (BEAKER) (test cycn=129) 218 mg/dL 70-110 HGB/HCT (H&H) - STAT [id number] 09:42:00* Test Item Value Reference Range Comments HEMOGLOBIN (BEAKER) (test twjm=332) 10.2 g/dL 13.0-16.8 HEMATOCRIT (BEAKER) (test ucpk=585) 30.0 % 40.0-50.0 SODIUM NA-STAT [id number] 09:38:00* Test Item Value Reference Range Comments SODIUM (BEAKER) (test evcl=181) 145 meq/L 135-148 POTASSIUM-STAT [id number] 09:38:00* Test Item Value Reference Range Comments POTASSIUM (BEAKER) (test ishr=434) 4.0 meq/L 3.6-5.5 THROMBOELASTOGRAPH (TEG)2018-09-01 08:56:00* Test Item Value Reference Range Comments TEG ACTIVATED CLOTTING TIME (BEAKER) (test yhen=9332) 11.5 minutes 4.0-7.0 TEG FIBRINOGEN ACTIVITY (BEAKER) (test jqjl=3299) 54.7 degrees 61.0-73.0 TEG PLT. AGGREGATION (BEAKER) (test xfrv=6348) 44.8 MM 55.0-65.0 TEG FIBRINOLYSIS (BEAKER) (test ugeu=7367) 2.3 % 0.0-5.0 TGH ACTIVATED CLOTTING TIME (BEAKER) (test uyfg=8937) 6.9 minutes 4.0-7.0 TGH FIBRINOGEN ACTIVITY (BEAKER) (test nert=1454) 62.2 degrees 61.0-73.0 TGH PLT. AGGREGATION (BEAKER) (test vkjo=3794) 42.9 MM 55.0-65.0 TGH FIBRINOLYSIS (BEAKER) (test jelf=6718) 0.1 % 0.0-5.0 CALCIUM, [id number] 08:47:00* Test Item Value Reference Range Comments CALCIUM IONIZED (BEAKER) (test brje=528) 1.13 mmol/L 1.12-1.27 PH, BLOOD (BEAKER) (test jnhk=0619) 7.27 SODIUM NA-STAT [id number] 08:46:00* Test Item Value Reference Range Comments SODIUM (BEAKER) (test fyml=532) 140 meq/L 135-148 POTASSIUM-STAT [id number] 08:46:00* Test Item Value Reference Range Comments POTASSIUM (BEAKER) (test zikz=460) 4.2 meq/L 3.6-5.5 BLOOD GAS, [id number] 08:46:00* Test Item Value Reference Range Comments PH ARTERIAL (BEAKER) (test dcik=758) 7.27 7.35-7.45 PCO2 ARTERIAL (BEAKER) (test zjyg=547) 44 mmHg 35-45 PO2 ARTERIAL (BEAKER) (test uadc=786) 122 mmHg 80-90 O2 SATURATION ARTERIAL (BEAKER) (test aici=385) 98.0 % 96.0-97.0 HCO3 ARTERIAL (BEAKER) (test kmja=657) 20 mmol/L 21-29 BASE EXCESS ARTERIAL (BEAKER) (test czeu=379) -6.8 mmol/L -2.0-3.0 PATIENT TEMPERATURE (BEAKER) (test qyop=6451) 36.5 C FIO2 (BEAKER) (test emgz=9004) 60.0 % GLUCOSE-STAT [id number] 08:46:00* Test Item Value Reference Range Comments GLUCOSE RANDOM (BEAKER) (test izba=655) 217 mg/dL 70-110 HGB/HCT (H&H) - STAT [id number] 08:46:00* Test Item Value Reference Range Comments HEMOGLOBIN (BEAKER) (test gkmm=797) 8.8 g/dL 13.0-16.8 HEMATOCRIT (BEAKER) (test gxvl=409) 26.0 % 40.0-50.0 THROMBOELASTOGRAPH (TEG)2018-09-01 08:44:00* Test Item Value Reference Range Comments TEG ACTIVATED CLOTTING TIME (BEAKER) (test utns=5974) 9.3 minutes 4.0-7.0 TEG FIBRINOGEN ACTIVITY (BEAKER) (test orzr=8162) 64.8 degrees 61.0-73.0 TEG PLT. AGGREGATION (BEAKER) (test zpvt=1311) 58.2 MM 55.0-65.0 TGH ACTIVATED CLOTTING TIME (BEAKER) (test odbi=5493) 7.5 minutes 4.0-7.0 TGH FIBRINOGEN ACTIVITY (BEAKER) (test tgoo=1348) 69.5 degrees 61.0-73.0 TGH PLT. AGGREGATION (BEAKER) (test kdoy=4033) 55.5 MM 55.0-65.0 CALCIUM, [id number] 08:08:00* Test Item Value Reference Range Comments CALCIUM IONIZED (BEAKER) (test uana=056) 1.04 mmol/L 1.12-1.27 PH, BLOOD (BEAKER) (test ahnl=4681) 7.23 SODIUM NA-STAT [id number] 08:07:00* Test Item Value Reference Range Comments SODIUM (BEAKER) (test qbrt=466) 142 meq/L 135-148 POTASSIUM-STAT [id number] 08:07:00* Test Item Value Reference Range Comments POTASSIUM (BEAKER) (test gwim=300) 4.0 meq/L 3.6-5.5 BLOOD GAS, [id number] 08:07:00* Test Item Value Reference Range Comments PH ARTERIAL (BEAKER) (test ehus=028) 7.25 7.35-7.45 PCO2 ARTERIAL (BEAKER) (test cdre=284) 47 mmHg 35-45 PO2 ARTERIAL (BEAKER) (test jqri=897) 238 mmHg 80-90 O2 SATURATION ARTERIAL (BEAKER) (test jegn=719) 99.4 % 96.0-97.0 HCO3 ARTERIAL (BEAKER) (test lgkr=688) 20 mmol/L 21-29 BASE EXCESS ARTERIAL (BEAKER) (test mrqu=322) -6.9 mmol/L -2.0-3.0 PATIENT TEMPERATURE (BEAKER) (test wzdn=7708) 36.0 C FIO2 (BEAKER) (test jtob=8900) 100.0 % GLUCOSE-STAT [id number] 08:07:00* Test Item Value Reference Range Comments GLUCOSE RANDOM (BEAKER) (test aagd=195) 229 mg/dL 70-110 HGB/HCT (H&H) - STAT [id number] 08:07:00* Test Item Value Reference Range Comments HEMOGLOBIN (BEAKER) (test cubh=229) 8.0 g/dL 13.0-16.8 HEMATOCRIT (BEAKER) (test blwm=603) 24.0 % 40.0-50.0 [id number] 07:58:00* Test Item Value Reference Range Comments FIBRINOGEN LEVEL (BEAKER) (test finn=463) 198 mg/dl 225-434 [id number] 07:53:00* Test Item Value Reference Range Comments PARTIAL THROMBOPLASTIN TIME (BEAKER) (test wyxp=298) 51.5 seconds 22.5-36.0 PROTHROMBIN TIME/[id number] 07:52:00* Test Item Value Reference Range Comments PROTIME (BEAKER) (test fbie=211) 18.2 seconds 11.7-14.7 INR (BEAKER) (test yjea=545) 1.5 <=5.9 RECOMMENDED COUMADIN/WARFARIN INR THERAPY RANGESSTANDARD DOSE: 2.0 - 3.0 Inclu soraya: PROPHYLAXIS for venous thrombosis, systemic embolization; TREATMENT for melissa ous thrombosis and/or pulmonary embolus.HIGH RISK: Target INR is 2.5-3.5 for pat ients with mechanical heart valves.PLATELET [id number] 07:43:00* Test Item Value Reference Range Comments PLATELET COUNT (BEAKER) (test ycks=093) 117 K/CU MM 150-450 CALCIUM, [id number] 07:37:00* Test Item Value Reference Range Comments CALCIUM IONIZED (BEAKER) (test vlyf=102) 1.09 mmol/L 1.12-1.27 PH, BLOOD (BEAKER) (test xgpw=2722) 7.16 BLOOD GAS, [id number] 07:36:00* Test Item Value Reference Range Comments PH ARTERIAL (BEAKER) (test vjcw=510) 7.17 7.35-7.45 PCO2 ARTERIAL (BEAKER) (test brsx=677) 52 mmHg 35-45 PO2 ARTERIAL (BEAKER) (test tkio=835) 139 mmHg 80-90 O2 SATURATION ARTERIAL (BEAKER) (test plai=868) 98.2 % 96.0-97.0 HCO3 ARTERIAL (BEAKER) (test itws=481) 19 mmol/L 21-29 BASE EXCESS ARTERIAL (BEAKER) (test cztq=723) -9.4 mmol/L -2.0-3.0 PATIENT TEMPERATURE (BEAKER) (test vdcx=6147) 36.0 C FIO2 (BEAKER) (test zazk=4760) 100.0 % GLUCOSE-STAT [id number] 07:35:00* Test Item Value Reference Range Comments GLUCOSE RANDOM (BEAKER) (test daro=413) 231 mg/dL 70-110 HGB/HCT (H&H) - STAT [id number] 07:35:00* Test Item Value Reference Range Comments HEMOGLOBIN (BEAKER) (test rxik=790) 6.1 g/dL 13.0-16.8 HEMATOCRIT (BEAKER) (test hpvl=708) 18.0 % 40.0-50.0 SODIUM NA-STAT [id number] 07:34:00* Test Item Value Reference Range Comments SODIUM (BEAKER) (test japg=718) 143 meq/L 135-148 POTASSIUM-STAT [id number] 07:34:00* Test Item Value Reference Range Comments POTASSIUM (BEAKER) (test lqkd=471) 3.9 meq/L 3.6-5.5 HGB/HCT (H&H) - STAT [id number] 06:49:00* Test Item Value Reference Range Comments HEMOGLOBIN (BEAKER) (test igqt=772) 5.8 g/dL 13.0-16.8 HEMATOCRIT (BEAKER) (test gzmv=919) 17.0 % 40.0-50.0 BLOOD GAS, [id number] 06:45:00* Test Item Value Reference Range Comments PH ARTERIAL (BEAKER) (test quyr=748) 7.22 7.35-7.45 PCO2 ARTERIAL (BEAKER) (test fnkg=619) 44 mmHg 35-45 PO2 ARTERIAL (BEAKER) (test mniy=180) 155 mmHg 80-90 O2 SATURATION ARTERIAL (BEAKER) (test mclw=219) 98.6 % 96.0-97.0 HCO3 ARTERIAL (BEAKER) (test kgwf=619) 18 mmol/L 21-29 BASE EXCESS ARTERIAL (BEAKER) (test qrka=640) -9.5 mmol/L -2.0-3.0 PATIENT TEMPERATURE (BEAKER) (test uvzk=4335) 36.1 C FIO2 (BEAKER) (test sadi=2828) 70.0 % RAD, CHEST, 1 VIEW, NON [id number] 06:35:00Reason for exam:->bleedingShould this be performed at the bedside?->YesFINAL REPORT Chest one view. Clinical history: bleeding Comparison: Chest radiograph 09/01/2018, 5:28 AM Technique: A single frontal view of the chest was obtained. Findings/impression: There is no significant change from most recent chest radiograph. Signed: Maritza Gomez MDReport Verified Date/Time: 09/01/2018 06:35:50 Reading Location: [facility] C013Y CT Body Reading Room , CHEST, 1 VIEW, NON [id number] 06:29:00Reason for exam:->s/p bronchShould this be performed at the bedside?->YesFINAL REPORT Chest one view. Clinical history: s/p bronchoscopy Comparison: Chest radiograph 09/01/2018, 3:51 AM Technique: A single frontal view of the chest was obtained. Findings:There has been interval placement of the feeding tube which projects below the diaphragm however the distal end is off the field of view. Other support devices are in satisfactory position. There are stable postsurgical changes. The cardiomediastinal contours are within normal limits. Again seen is near complete opacification of the left hemithorax with mildly aeration in the left lower lobe. There are diffuse alveolar and interstitial opacities in the right hemithorax, mildly decreased. There is no pneumothorax. Signed: Maritza Gomez Verified Date/Time: 09/01/2018 06:29:07 Reading Location: [facility] C013Y CT Body Reading Room -[id number] 06:14:00* Test Item Value Reference Range Comments ACTIVATED CLOTTING TIME (BEAKER) (test jqus=431) 472 sec TESTED AT [facility] [address] [facility] [address] [id number] 06:14:00* Test Item Value Reference Range Comments ACTIVATED CLOTTING TIME (BEAKER) (test vtxa=290) 357 sec TESTED AT [address] [address] RAD, CHEST, 1 VIEW, NON [id number] 05:08:00while patient is intubated or has chest tubes.Reason for exam:->s/p 3 vessel coronary artery bypass graftShould this be performed at the bedside?->YesFINAL REPORT Chest one view. Clinical history: s/p 3 vessel coronary artery bypass graft Comparison: Chest radiograph 08/31/2018 Technique: A single frontal view of the chest was obtained. Findings: The patient status post median sternotomy and CABG. There has been interval removal of feeding tube. Other support devices are unchanged.The cardiomediastinal contours are stable. There is complete opacification of the left hemidiaphragm which may be due to pleural effusion or atelectasis, new in the interval. There are diffuse interstitial and hazy alveolar opacities in the right hemithorax. There is no pneumothorax. Signed: Amuta, Maritza MDReport Verified Date/Time: 09/01/2018 05:08:20 Reading Location: [facility] B1 C013Y CT Body Reading Room [id number] 04:40:00* Test Item Value Reference Range Comments FIBRINOGEN LEVEL (BEAKER) (test bawp=917) 146 mg/dl 225-434 [id number] 04:40:00* Test Item Value Reference Range Comments PHOSPHORUS (BEAKER) (test bxwb=093) 1.9 mg/dL 2.3-4.7 [id number] 04:40:00* Test Item Value Reference Range Comments MAGNESIUM (BEAKER) (test ptqy=715) 1.5 mg/dL 1.6-2.6 BASIC METABOLIC [id number] 04:40:00* Test Item Value Reference Range Comments SODIUM (BEAKER) (test wfus=284) 145 meq/L 136-145 POTASSIUM (BEAKER) (test megq=708) 3.7 meq/L 3.5-5.1 CHLORIDE (BEAKER) (test eidk=990) 118 meq/L 98-107 CO2 (BEAKER) (test lpcl=445) 15 meq/L 22-29 BLOOD UREA NITROGEN (BEAKER) (test ebmk=240) 20 mg/dL 7-21 CREATININE (BEAKER) (test fspg=439) 1.08 mg/dL 0.57-1.25 GLUCOSE RANDOM (BEAKER) (test xqld=029) 212 mg/dL 70-105 CALCIUM (BEAKER) (test axwt=179) 8.6 mg/dL 8.4-10.2 EGFR (BEAKER) (test mhlt=7185) 72 mL/min/1.73 sq m ESTIMATED GFR IS NOT ACCURATE CREATININE CLEARANCE IN PREDICTING GLOMERULAR FILTRATION RATE. ESTIMATED GFR IS NOT APPLICABLE FOR DIALYSIS PATIENTS. [id number] 04:35:00* Test Item Value Reference Range Comments PARTIAL THROMBOPLASTIN TIME (BEAKER) (test ipvm=970) 53.1 seconds 22.5-36.0 PROTHROMBIN TIME/[id number] 04:34:00* Test Item Value Reference Range Comments PROTIME (BEAKER) (test asyn=365) 19.6 seconds 11.7-14.7 INR (BEAKER) (test gprc=852) 1.7 <=5.9 RECOMMENDED COUMADIN/WARFARIN INR THERAPY RANGESSTANDARD DOSE: 2.0 - 3.0 Inclu soraya: PROPHYLAXIS for venous thrombosis, systemic embolization; TREATMENT for melissa ous thrombosis and/or pulmonary embolus.HIGH RISK: Target INR is 2.5-3.5 for pat ients with mechanical heart valves.LACTIC ACID, ARTERIAL, WHOLE [id number] 04:34:00* Test Item Value Reference Range Comments LACTATE BLOOD ARTERIAL (2) (BEAKER) (test yfjx=6665) 9.3 mmol/L 0.5-2.2 Effective 03/05/2016: Units/Reference Range ChangeNew: 0.5-2.2 mmol/L Previous: 5 -20 mg/dLOXYGEN SATURATION, [id number] 04:22:00* Test Item Value Reference Range Comments O2 SATURATION (MEASURED) (BEAKER) (test pvax=2704) 47.1 % BLOOD GAS, [id number] 04:21:00* Test Item Value Reference Range Comments PH ARTERIAL (BEAKER) (test zfkh=895) 7.29 7.35-7.45 PCO2 ARTERIAL (BEAKER) (test fxdk=660) 38 mmHg 35-45 PO2 ARTERIAL (BEAKER) (test njth=438) 76 mmHg 80-90 O2 SATURATION ARTERIAL (BEAKER) (test qaaa=159) 93.6 % 96.0-97.0 HCO3 ARTERIAL (BEAKER) (test ogbb=803) 18 mmol/L 21-29 BASE EXCESS ARTERIAL (BEAKER) (test qeqt=541) -8.2 mmol/L -2.0-3.0 PATIENT TEMPERATURE (BEAKER) (test hxcg=9501) 37.1 C FIO2 (BEAKER) (test nrne=1592) 50.0 % RAD, CHEST, 1 VIEW, NON [id number] 03:24:00Reason for exam:->s/p 3 vessel coronary artery bypass graftShould this be performed at the bedside?->YesFINAL REPORT EXAMINATION: AP PORTABLE CHEST RADIOGRAPH CLINICAL INDICATION: Cardiothoracic surgery, intubation, chest tube placement. IMP RESSION: Compared with 08/30/2018 The patient is status post interval cardiothor acic surgery with midline sternotomy, intubation and and placement of multiple c hest tubes. The tip of the endotracheal tube projects over the midline approxima tely 5 cm superior to the brad. The tip of the nasogastric tube is in the dist al esophagus. The tip of the right jugular central line projects over the superi or vena cava. New opacities are noted in both lungs with a predominantly central and basilar distribution worrisome for a combination of pulmonary edema and ate lectatic lung. Sequela from aspiration cannot be excluded. Pulmonary hemorrhage would also be included in the differential diagnosis in the appropriate clinical setting. Bilateral pleural effusions are suspected, left greater than right. As ymmetric attenuation is noted in the left apical thorax with indistinct margins of the adjacent mediastinum, nonspecific but concerning for possible hemorrhage. Small curvilinear and punctate gas collections are also suspected in the left p aratracheal region and near the apex of the left hemithorax. Note: Consider adva ncing the nasogastric tube clinically appropriate. Short-term imaging surveillan ce recommended. Chest CT may also be beneficial in further characterization if c linically warranted. Results discussed with patient's nurse Aurea, at [address] She will notify the appropriate on-call clinician. Signed: Norma Dorado port Verified Date/Time: 09/01/2018 03:24:23 Reading Location: [address] Reading Room Electronically signed by: NORMA DORADO M.D. on 09/01 03:24 AM LACTIC ACID, ARTERIAL, WHOLE [id number] 01:51:00* Test Item Value Reference Range Comments LACTATE BLOOD ARTERIAL (2) (BEAKER) (test bsxl=0911) 9.1 mmol/L 0.5-2.2 Effective 03/05/2016: Units/Reference Range ChangeNew: 0.5-2.2 mmol/L Previous: 5 -20 mg/dLCALCIUM, [id number] 00:54:00* Test Item Value Reference Range Comments CALCIUM IONIZED (BEAKER) (test gmuz=994) 1.08 mmol/L 1.12-1.27 PH, BLOOD (BEAKER) (test djwf=6516) 7.33 SODIUM NA-STAT [id number] 00:52:00* Test Item Value Reference Range Comments SODIUM (BEAKER) (test qxkq=707) 140 meq/L 135-148 POTASSIUM-STAT [id number] 00:52:00* Test Item Value Reference Range Comments POTASSIUM (BEAKER) (test cfjj=220) 3.6 meq/L 3.6-5.5 BLOOD GAS, [id number] 00:52:00* Test Item Value Reference Range Comments PH ARTERIAL (BEAKER) (test kvbq=116) 7.33 7.35-7.45 PCO2 ARTERIAL (BEAKER) (test iwfg=165) 42 mmHg 35-45 PO2 ARTERIAL (BEAKER) (test pxzs=645) 103 mmHg 80-90 O2 SATURATION ARTERIAL (BEAKER) (test vsjf=920) 97.4 % 96.0-97.0 HCO3 ARTERIAL (BEAKER) (test zfmz=362) 22 mmol/L 21-29 BASE EXCESS ARTERIAL (BEAKER) (test ndeh=854) -4.0 mmol/L -2.0-3.0 PATIENT TEMPERATURE (BEAKER) (test fpdd=0162) 37.0 C FIO2 (BEAKER) (test ybuw=8973) 60.0 % GLUCOSE-STAT [id number] 00:52:00* Test Item Value Reference Range Comments GLUCOSE RANDOM (BEAKER) (test dheg=569) 159 mg/dL 70-110 HGB/HCT (H&H) - STAT [id number] 00:52:00* Test Item Value Reference Range Comments HEMOGLOBIN (BEAKER) (test hlhl=460) 8.1 g/dL 13.0-16.8 HEMATOCRIT (BEAKER) (test dkiv=961) 24.0 % 40.0-50.0 [id number] 00:06:00* Test Item Value Reference Range Comments FIBRINOGEN LEVEL (BEAKER) (test xhck=391) 232 mg/dl 225-434 [id number] 00:06:00* Test Item Value Reference Range Comments PARTIAL THROMBOPLASTIN TIME (BEAKER) (test ntzq=666) 36.0 seconds 22.5-36.0 TROPONIN [id number] 00:05:00* Test Item Value Reference Range Comments TROPONIN I (BEAKER) (test gzur=462) 1.95 ng/mL 0.00-0.03 Troponin I (TnI) levels must be interpreted in the context of the presenting sym ptoms and the clinical findings. Elevated TnI levels indicate myocardial damage, but are not specific for ischemic heart disease. Elevated TnI levels are seen in patients with other cardiac conditions (including myocarditis and congestive h eart failure), and slight TnI elevations occur in patients with other conditions , including sepsis, renal failure, acidosis, acute neurological disease, and per sistent tachyarrhythmia.PROTHROMBIN TIME/[id number] 00:05:00* Test Item Value Reference Range Comments PROTIME (BEAKER) (test akvf=898) 17.3 seconds 11.7-14.7 INR (BEAKER) (test meez=428) 1.4 <=5.9 RECOMMENDED COUMADIN/WARFARIN INR THERAPY RANGESSTANDARD DOSE: 2.0 - 3.0 Inclu soraya: PROPHYLAXIS for venous thrombosis, systemic embolization; TREATMENT for melissa ous thrombosis and/or pulmonary embolus.HIGH RISK: Target INR is 2.5-3.5 for pat ients with mechanical heart valves.CREATINE KINASE (CK), TOTAL AND [id number] 23:55:00* Test Item Value Reference Range Comments CREATINE KINASE TOTAL (BEAKER) (test fwfd=898) 1029 U/L 29-200 CREATINE KINASE-MB (BEAKER) (test zhfm=153) 18.5 ng/mL 0.0-6.6 CREATINE KINASE-MB INDEX (BEAKER) (test jcjd=502) 1.8 % CK-MB Reference Range:<6.7 Normal6.7-10.0 Borderline>10.0 Abnormal CREATINE KINASE (CK), TOTAL AND [id number] 23:54:00* Test Item Value Reference Range Comments CREATINE KINASE TOTAL (BEAKER) (test zrdp=186) 1035 U/L 29-200 CREATINE KINASE-MB (BEAKER) (test wlji=002) 17.7 ng/mL 0.0-6.6 CREATINE KINASE-MB INDEX (BEAKER) (test dyuo=208) 1.7 % CK-MB Reference Range:<6.7 Normal6.7-10.0 Borderline>10.0 Abnormal BASIC METABOLIC [id number] 23:53:00* Test Item Value Reference Range Comments SODIUM (BEAKER) (test jyfe=552) 141 meq/L 136-145 POTASSIUM (BEAKER) (test mtqz=801) 4.1 meq/L 3.5-5.1 CHLORIDE (BEAKER) (test bmbi=714) 111 meq/L 98-107 CO2 (BEAKER) (test uxqk=400) 21 meq/L 22-29 BLOOD UREA NITROGEN (BEAKER) (test cbod=140) 23 mg/dL 7-21 CREATININE (BEAKER) (test pxhz=663) 0.99 mg/dL 0.57-1.25 GLUCOSE RANDOM (BEAKER) (test mtim=599) 146 mg/dL 70-105 CALCIUM (BEAKER) (test azwg=793) 8.2 mg/dL 8.4-10.2 EGFR (BEAKER) (test ukpk=3728) 79 mL/min/1.73 sq m ESTIMATED GFR IS NOT ACCURATE CREATININE CLEARANCE IN PREDICTING GLOMERULAR FILTRATION RATE. ESTIMATED GFR IS NOT APPLICABLE FOR DIALYSIS PATIENTS. PLATELET [id number] 23:32:00* Test Item Value Reference Range Comments PLATELET COUNT (BEAKER) (test iooj=063) 149 K/CU MM 150-450 HEMOGLOBIN AND [id number] 23:32:00* Test Item Value Reference Range Comments HEMOGLOBIN (BEAKER) (test fysv=470) 9.2 GM/DL 13.7-17.5 HEMATOCRIT (BEAKER) (test mkzl=457) 27.9 % 40.1-51.0 BLOOD GAS, [id number] 23:27:00* Test Item Value Reference Range Comments PH ARTERIAL (BEAKER) (test dilq=081) 7.28 7.35-7.45 PCO2 ARTERIAL (BEAKER) (test yozh=751) 49 mmHg 35-45 PO2 ARTERIAL (BEAKER) (test texj=079) 113 mmHg 80-90 O2 SATURATION ARTERIAL (BEAKER) (test hrtf=612) 97.6 % 96.0-97.0 HCO3 ARTERIAL (BEAKER) (test lyml=542) 23 mmol/L 21-29 BASE EXCESS ARTERIAL (BEAKER) (test twea=739) -4.0 mmol/L -2.0-3.0 PATIENT TEMPERATURE (BEAKER) (test ddhw=1288) 36.7 C FIO2 (BEAKER) (test xmeq=4740) 60.0 % [id number] 22:35:00* Test Item Value Reference Range Comments MAGNESIUM (BEAKER) (test sdso=735) 1.8 mg/dL 1.6-2.6 Specimen moderately hemolyzed [id number] 22:35:00* Test Item Value Reference Range Comments PHOSPHORUS (BEAKER) (test ijhz=219) 3.9 mg/dL 2.3-4.7 Specimen moderately hemolyzed [id number] 22:35:00* Test Item Value Reference Range Comments POTASSIUM (BEAKER) (test bril=014) 4.5 meq/L 3.5-5.1 Specimen moderately hemolyzed [id number] 22:35:00* Test Item Value Reference Range Comments SODIUM (BEAKER) (test mrdu=135) 145 meq/L 136-145 [id number] 22:35:00* Test Item Value Reference Range Comments GLUCOSE RANDOM (BEAKER) (test nidj=525) 162 mg/dL 70-105 LACTIC ACID, ARTERIAL, WHOLE [id number] 22:33:00* Test Item Value Reference Range Comments LACTATE BLOOD ARTERIAL (2) (BEAKER) (test jcgp=2114) 8.0 mmol/L 0.5-2.2 Effective 03/05/2016: Units/Reference Range ChangeNew: 0.5-2.2 mmol/L Previous: 5 -20 mg/dLTHROMBOELASTOGRAPH (TEG)2018-08-31 22:30:00* Test Item Value Reference Range Comments TEG ACTIVATED CLOTTING TIME (BEAKER) (test rhjv=5484) 8.5 minutes 4.0-7.0 TEG FIBRINOGEN ACTIVITY (BEAKER) (test mvtq=0697) 68.1 degrees 61.0-73.0 TEG PLT. AGGREGATION (BEAKER) (test dtwi=3922) 56.1 MM 55.0-65.0 TGH ACTIVATED CLOTTING TIME (BEAKER) (test ppxb=1299) 8.7 minutes 4.0-7.0 TGH FIBRINOGEN ACTIVITY (BEAKER) (test fsvm=8715) 69.3 degrees 61.0-73.0 TGH PLT. AGGREGATION (BEAKER) (test shsj=7118) 55.3 MM 55.0-65.0 CBC W/PLT COUNT & AUTO [id number] 22:22:00* Test Item Value Reference Range Comments WHITE BLOOD CELL COUNT (BEAKER) (test eqwf=237) 12.6 K/ L 3.5-10.5 RED BLOOD CELL COUNT (BEAKER) (test eonj=739) 2.77 M/ L 4.63-6.08 HEMOGLOBIN (BEAKER) (test qnwd=381) 9.2 GM/DL 13.7-17.5 HEMATOCRIT (BEAKER) (test wkbk=095) 27.9 % 40.1-51.0 MEAN CORPUSCULAR VOLUME (BEAKER) (test suru=764) 100.7 fL 79.0-92.2 MEAN CORPUSCULAR HEMOGLOBIN (BEAKER) (test svxx=139) 33.2 pg 25.7-32.2 MEAN CORPUSCULAR HEMOGLOBIN CONC (BEAKER) (test hijq=822) 33.0 GM/DL 32.3-36.5 RED CELL DISTRIBUTION WIDTH (BEAKER) (test xevo=691) 13.3 % 11.6-14.4 PLATELET COUNT (BEAKER) (test nful=451) 137 K/CU MM 150-450 MEAN PLATELET VOLUME (BEAKER) (test ovrj=617) 10.7 fL 9.4-12.4 NUCLEATED RED BLOOD CELLS (BEAKER) (test yirx=436) 0 /100 WBC 0-0 NEUTROPHILS RELATIVE PERCENT (BEAKER) (test vzie=481) 85 % LYMPHOCYTES RELATIVE PERCENT (BEAKER) (test fkff=691) 10 % MONOCYTES RELATIVE PERCENT (BEAKER) (test piqz=116) 4 % EOSINOPHILS RELATIVE PERCENT (BEAKER) (test kmkz=127) 0 % BASOPHILS RELATIVE PERCENT (BEAKER) (test yzmo=136) 0 % NEUTROPHILS ABSOLUTE COUNT (BEAKER) (test svrt=200) 10.76 K/ L 1.78-5.38 LYMPHOCYTES ABSOLUTE COUNT (BEAKER) (test phif=409) 1.24 K/ L 1.32-3.57 MONOCYTES ABSOLUTE COUNT (BEAKER) (test rgaz=820) 0.48 K/ L 0.30-0.82 EOSINOPHILS ABSOLUTE COUNT (BEAKER) (test yodq=634) 0.03 K/ L 0.04-0.54 BASOPHILS ABSOLUTE COUNT (BEAKER) (test iguo=246) 0.02 K/ L 0.01-0.08 IMMATURE GRANULOCYTES-RELATIVE PERCENT (BEAKER) (test phhm=3731) 1 % 0-1 BLOOD GAS, [id number] 22:15:00* Test Item Value Reference Range Comments PH ARTERIAL (BEAKER) (test wsqo=858) 7.25 7.35-7.45 PCO2 ARTERIAL (BEAKER) (test ewqd=043) 51 mmHg 35-45 PO2 ARTERIAL (BEAKER) (test ampr=493) 87 mmHg 80-90 O2 SATURATION ARTERIAL (BEAKER) (test ennq=926) 95.2 % 96.0-97.0 HCO3 ARTERIAL (BEAKER) (test xnhl=651) 22 mmol/L 21-29 BASE EXCESS ARTERIAL (BEAKER) (test qext=080) -5.4 mmol/L -2.0-3.0 PATIENT TEMPERATURE (BEAKER) (test mnrj=6276) 36.8 C FIO2 (BEAKER) (test kurq=2720) 60.0 % OXYGEN SATURATION, [id number] 22:12:00* Test Item Value Reference Range Comments O2 SATURATION (MEASURED) (BEAKER) (test ugxx=8009) 80.6 % [id number] 21:52:00* Test Item Value Reference Range Comments FIBRINOGEN LEVEL (BEAKER) (test gqdl=849) 200 mg/dl 225-434 [id number] 21:52:00* Test Item Value Reference Range Comments PARTIAL THROMBOPLASTIN TIME (BEAKER) (test oama=693) 37.1 seconds 22.5-36.0 PROTHROMBIN TIME/[id number] 21:51:00* Test Item Value Reference Range Comments PROTIME (BEAKER) (test npkm=804) 18.6 seconds 11.7-14.7 INR (BEAKER) (test tsrp=683) 1.6 <=5.9 RECOMMENDED COUMADIN/WARFARIN INR THERAPY RANGESSTANDARD DOSE: 2.0 - 3.0 Inclu soraya: PROPHYLAXIS for venous thrombosis, systemic embolization; TREATMENT for melissa ous thrombosis and/or pulmonary embolus.HIGH RISK: Target INR is 2.5-3.5 for pat ients with mechanical heart valves.BLOOD GAS, [id number] 21:39:00* Test Item Value Reference Range Comments PH ARTERIAL (BEAKER) (test vmec=202) 7.24 7.35-7.45 PCO2 ARTERIAL (BEAKER) (test sjdg=734) 51 mmHg 35-45 PO2 ARTERIAL (BEAKER) (test xfgj=738) 78 mmHg 80-90 O2 SATURATION ARTERIAL (BEAKER) (test vvbc=838) 93.6 % 96.0-97.0 HCO3 ARTERIAL (BEAKER) (test trdo=288) 22 mmol/L 21-29 BASE EXCESS ARTERIAL (BEAKER) (test ntbd=826) -6.0 mmol/L -2.0-3.0 PATIENT TEMPERATURE (BEAKER) (test hqis=1229) 36.5 C FIO2 (BEAKER) (test fook=7302) 100.0 % GLUCOSE-STAT [id number] 21:39:00* Test Item Value Reference Range Comments GLUCOSE RANDOM (BEAKER) (test ahdg=334) 158 mg/dL 70-110 HGB/HCT (H&H) - STAT [id number] 21:39:00* Test Item Value Reference Range Comments HEMOGLOBIN (BEAKER) (test kuvg=214) 9.9 g/dL 13.0-16.8 HEMATOCRIT (BEAKER) (test pytl=000) 29.0 % 40.0-50.0 CALCIUM, [id number] 21:38:00* Test Item Value Reference Range Comments CALCIUM IONIZED (BEAKER) (test aecv=964) 0.97 mmol/L 1.12-1.27 PH, BLOOD (BEAKER) (test bied=9241) 7.24 SODIUM NA-STAT [id number] 21:38:00* Test Item Value Reference Range Comments SODIUM (BEAKER) (test zqdu=807) 141 meq/L 135-148 POTASSIUM-STAT [id number] 21:38:00* Test Item Value Reference Range Comments POTASSIUM (BEAKER) (test bdmw=056) 3.9 meq/L 3.6-5.5 THROMBOELASTOGRAPH (TEG)[id number] 21:14:00* Test Item Value Reference Range Comments TEG ACTIVATED CLOTTING TIME (BEAKER) (test mfpj=8079) 10.6 minutes 4.0-7.0 TEG FIBRINOGEN ACTIVITY (BEAKER) (test zmua=2972) 29.6 degrees 61.0-73.0 TEG PLT. AGGREGATION (BEAKER) (test yrss=0714) 51.5 MM 55.0-65.0 TGH ACTIVATED CLOTTING TIME (BEAKER) (test uvgn=5555) 10.2 minutes 4.0-7.0 TGH FIBRINOGEN ACTIVITY (BEAKER) (test erss=5559) 56.9 degrees 61.0-73.0 TGH PLT. AGGREGATION (BEAKER) (test qpal=9681) 49.0 MM 55.0-65.0 [id number] 21:07:00* Test Item Value Reference Range Comments ACTIVATED CLOTTING TIME (BEAKER) (test rale=792) 125 sec TESTED AT [place] [id number] 21:07:00* Test Item Value Reference Range Comments ACTIVATED CLOTTING TIME (BEAKER) (test fqfl=853) 400 sec TESTED AT [place] [id number] 21:07:00* Test Item Value Reference Range Comments ACTIVATED CLOTTING TIME (BEAKER) (test wevg=781) 532 sec TESTED AT [place] [id number] 21:07:00* Test Item Value Reference Range Comments ACTIVATED CLOTTING TIME (BEAKER) (test huer=483) 714 sec TESTED AT [place] [id number] 21:07:00* Test Item Value Reference Range Comments ACTIVATED CLOTTING TIME (BEAKER) (test hrur=290) 400 sec TESTED AT [place] [id number] 21:07:00* Test Item Value Reference Range Comments ACTIVATED CLOTTING TIME (BEAKER) (test fecw=430) 593 sec TESTED AT [place] [id number] 21:07:00* Test Item Value Reference Range Comments ACTIVATED CLOTTING TIME (BEAKER) (test uems=424) 527 sec TESTED AT [place] [id number] [id number] 21:07:00* Test Item Value Reference Range Comments ACTIVATED CLOTTING TIME (BEAKER) (test nbig=101) 450 sec TESTED AT [place] [address] [id number] 21:07:00* Test Item Value Reference Range Comments ACTIVATED CLOTTING TIME (BEAKER) (test vqwk=010) 466 sec TESTED AT [facility] [address] [facility] [address] SODIUM NA-STAT [id number] 20:50:00* Test Item Value Reference Range Comments SODIUM (BEAKER) (test viye=633) 141 meq/L 135-148 POTASSIUM-STAT [id number] 20:50:00* Test Item Value Reference Range Comments POTASSIUM (BEAKER) (test kcqz=122) 4.0 meq/L 3.6-5.5 BLOOD GAS, [id number] 20:50:00* Test Item Value Reference Range Comments PH ARTERIAL (BEAKER) (test bqrw=752) 7.25 7.35-7.45 PCO2 ARTERIAL (BEAKER) (test lbsg=631) 46 mmHg 35-45 PO2 ARTERIAL (BEAKER) (test knzb=305) 104 mmHg 80-90 O2 SATURATION ARTERIAL (BEAKER) (test uapd=354) 97.1 % 96.0-97.0 HCO3 ARTERIAL (BEAKER) (test gogy=695) 20 mmol/L 21-29 BASE EXCESS ARTERIAL (BEAKER) (test gksz=979) -7.4 mmol/L -2.0-3.0 PATIENT TEMPERATURE (BEAKER) (test jhqu=4075) 36.4 C FIO2 (BEAKER) (test iknp=4675) 100.0 % GLUCOSE-STAT [id number] 20:50:00* Test Item Value Reference Range Comments GLUCOSE RANDOM (BEAKER) (test trld=485) 165 mg/dL 70-110 HGB/HCT (H&H) - STAT [id number] 20:50:00* Test Item Value Reference Range Comments HEMOGLOBIN (BEAKER) (test surq=993) 11.0 g/dL 13.0-16.8 HEMATOCRIT (BEAKER) (test mnbc=696) 32.0 % 40.0-50.0 [id number] 20:31:00* Test Item Value Reference Range Comments FIBRINOGEN LEVEL (BEAKER) (test wggw=053) 162 mg/dl 225-434 [id number] 20:31:00* Test Item Value Reference Range Comments PARTIAL THROMBOPLASTIN TIME (BEAKER) (test clhs=084) 41.7 seconds 22.5-36.0 PROTHROMBIN [id number] 20:30:00* Test Item Value Reference Range Comments PROTIME (BEAKER) (test kkvr=374) 24.3 seconds 11.7-14.7 INR (BEAKER) (test cvfl=420) 2.2 <=5.9 RECOMMENDED COUMADIN/WARFARIN INR THERAPY RANGESSTANDARD DOSE: 2.0 - 3.0 Inclu soraya: PROPHYLAXIS for venous thrombosis, systemic embolization; TREATMENT for melissa ous thrombosis and/or pulmonary embolus.HIGH RISK: Target INR is 2.5-3.5 for pat ients with mechanical heart valves.PLATELET [id number] 20:21:00* Test Item Value Reference Range Comments PLATELET COUNT (BEAKER) (test wflo=344) 73 K/CU MM 150-450 BLOOD GAS, [id number] 20:16:00* Test Item Value Reference Range Comments PH ARTERIAL (BEAKER) (test xuxf=345) 7.28 7.35-7.45 PCO2 ARTERIAL (BEAKER) (test wfxk=755) 51 mmHg 35-45 PO2 ARTERIAL (BEAKER) (test jokl=867) 123 mmHg 80-90 O2 SATURATION ARTERIAL (BEAKER) (test uabu=719) 98.1 % 96.0-97.0 HCO3 ARTERIAL (BEAKER) (test irfi=527) 23 mmol/L 21-29 BASE EXCESS ARTERIAL (BEAKER) (test omng=905) -3.9 mmol/L -2.0-3.0 PATIENT TEMPERATURE (BEAKER) (test idrf=0788) 36.3 C FIO2 (BEAKER) (test hols=3282) 100.0 % GLUCOSE-STAT [id number] 20:16:00* Test Item Value Reference Range Comments GLUCOSE RANDOM (BEAKER) (test jxko=186) 182 mg/dL 70-110 HGB/HCT (H&H) - STAT [id number] 20:16:00* Test Item Value Reference Range Comments HEMOGLOBIN (BEAKER) (test pxqt=093) 10.0 g/dL 13.0-16.8 HEMATOCRIT (BEAKER) (test rlhl=514) 29.0 % 40.0-50.0 CALCIUM, [id number] 20:16:00* Test Item Value Reference Range Comments CALCIUM IONIZED (BEAKER) (test bpad=682) 1.20 mmol/L 1.12-1.27 PH, BLOOD (BEAKER) (test lsvg=0625) 7.28 SODIUM NA-STAT [id number] 20:15:00* Test Item Value Reference Range Comments SODIUM (BEAKER) (test otpo=684) 139 meq/L 135-148 POTASSIUM-STAT [id number] 20:15:00* Test Item Value Reference Range Comments POTASSIUM (BEAKER) (test zzpy=123) 4.0 meq/L 3.6-5.5 SODIUM NA-STAT [id number] 19:32:00* Test Item Value Reference Range Comments SODIUM (BEAKER) (test sjmz=801) 139 meq/L 135-148 POTASSIUM-STAT [id number] 19:32:00* Test Item Value Reference Range Comments POTASSIUM (BEAKER) (test vjtk=971) 4.6 meq/L 3.6-5.5 BLOOD GAS, [id number] 19:32:00* Test Item Value Reference Range Comments PH ARTERIAL (BEAKER) (test ywpd=581) 7.37 7.35-7.45 PCO2 ARTERIAL (BEAKER) (test uwfs=455) 44 mmHg 35-45 PO2 ARTERIAL (BEAKER) (test nwdm=905) 299 mmHg 80-90 O2 SATURATION ARTERIAL (BEAKER) (test gnue=213) 99.7 % 96.0-97.0 HCO3 ARTERIAL (BEAKER) (test zvkq=917) 25 mmol/L 21-29 BASE EXCESS ARTERIAL (BEAKER) (test gbvp=493) -0.6 mmol/L -2.0-3.0 PATIENT TEMPERATURE (BEAKER) (test hpfj=2345) 37.0 C FIO2 (BEAKER) (test xxtg=3060) 100.0 % GLUCOSE-STAT [id number] 19:32:00* Test Item Value Reference Range Comments GLUCOSE RANDOM (BEAKER) (test fsyz=646) 191 mg/dL 70-110 HGB/HCT (H&H) - STAT [id number] 19:32:00* Test Item Value Reference Range Comments HEMOGLOBIN (BEAKER) (test fkcc=528) 9.8 g/dL 13.0-16.8 HEMATOCRIT (BEAKER) (test uxcm=625) 29.0 % 40.0-50.0 BLOOD GAS, [id number] 19:00:00* Test Item Value Reference Range Comments PH ARTERIAL (BEAKER) (test ymok=962) 7.28 7.35-7.45 PCO2 ARTERIAL (BEAKER) (test suym=236) 47 mmHg 35-45 PO2 ARTERIAL (BEAKER) (test kmxt=118) 257 mmHg 80-90 O2 SATURATION ARTERIAL (BEAKER) (test gtsx=003) 99.5 % 96.0-97.0 HCO3 ARTERIAL (BEAKER) (test qogv=620) 22 mmol/L 21-29 BASE EXCESS ARTERIAL (BEAKER) (test gyzq=534) -5.4 mmol/L -2.0-3.0 PATIENT TEMPERATURE (BEAKER) (test wenu=6135) 34.5 C FIO2 (BEAKER) (test nkfe=8548) 90.0 % GLUCOSE-STAT [id number] 19:00:00* Test Item Value Reference Range Comments GLUCOSE RANDOM (BEAKER) (test vvsm=518) 183 mg/dL 70-110 HGB/HCT (H&H) - STAT [id number] 19:00:00* Test Item Value Reference Range Comments HEMOGLOBIN (BEAKER) (test immy=759) 10.6 g/dL 13.0-16.8 HEMATOCRIT (BEAKER) (test qxhc=505) 31.0 % 40.0-50.0 SODIUM NA-STAT [id number] 18:59:00* Test Item Value Reference Range Comments SODIUM (BEAKER) (test bmgj=285) 140 meq/L 135-148 POTASSIUM-STAT [id number] 18:59:00* Test Item Value Reference Range Comments POTASSIUM (BEAKER) (test mtou=189) 4.0 meq/L 3.6-5.5 BLOOD GAS, [id number] 18:29:00* Test Item Value Reference Range Comments PH ARTERIAL (BEAKER) (test rdyi=981) 7.27 7.35-7.45 PCO2 ARTERIAL (BEAKER) (test uyhv=844) 43 mmHg 35-45 PO2 ARTERIAL (BEAKER) (test daan=536) 301 mmHg 80-90 O2 SATURATION ARTERIAL (BEAKER) (test jjos=601) 99.6 % 96.0-97.0 HCO3 ARTERIAL (BEAKER) (test prcm=136) 20 mmol/L 21-29 BASE EXCESS ARTERIAL (BEAKER) (test qlah=476) -7.6 mmol/L -2.0-3.0 PATIENT TEMPERATURE (BEAKER) (test xdhj=6715) 34.4 C FIO2 (BEAKER) (test bapy=0720) 70.0 % GLUCOSE-STAT [id number] 18:29:00* Test Item Value Reference Range Comments GLUCOSE RANDOM (BEAKER) (test naxw=617) 169 mg/dL 70-110 HGB/HCT (H&H) - STAT [id number] 18:29:00* Test Item Value Reference Range Comments HEMOGLOBIN (BEAKER) (test wwvb=142) 10.1 g/dL 13.0-16.8 HEMATOCRIT (BEAKER) (test iuhl=504) 30.0 % 40.0-50.0 SODIUM NA-STAT [id number] 18:28:00* Test Item Value Reference Range Comments SODIUM (BEAKER) (test yfwr=750) 138 meq/L 135-148 POTASSIUM-STAT [id number] 18:28:00* Test Item Value Reference Range Comments POTASSIUM (BEAKER) (test oczo=502) 3.8 meq/L 3.6-5.5 CALCIUM, [id number] 16:46:00* Test Item Value Reference Range Comments CALCIUM IONIZED (BEAKER) (test dicl=105) 1.03 mmol/L 1.12-1.27 PH, BLOOD (BEAKER) (test xkks=2939) 7.38 BLOOD GAS, [id number] 16:46:00* Test Item Value Reference Range Comments PH ARTERIAL (BEAKER) (test iqgo=169) 7.38 7.35-7.45 PCO2 ARTERIAL (BEAKER) (test hpyx=252) 39 mmHg 35-45 PO2 ARTERIAL (BEAKER) (test lgri=953) 402 mmHg 80-90 O2 SATURATION ARTERIAL (BEAKER) (test oauz=179) 99.8 % 96.0-97.0 HCO3 ARTERIAL (BEAKER) (test igav=454) 24 mmol/L 21-29 BASE EXCESS ARTERIAL (BEAKER) (test lqei=899) -2.6 mmol/L -2.0-3.0 PATIENT TEMPERATURE (BEAKER) (test juoy=3762) 33.2 C FIO2 (BEAKER) (test jaeg=8019) 100.0 % GLUCOSE-STAT [id number] 16:46:00* Test Item Value Reference Range Comments GLUCOSE RANDOM (BEAKER) (test gboe=197) 165 mg/dL 70-110 HGB/HCT (H&H) - STAT [id number] 16:46:00* Test Item Value Reference Range Comments HEMOGLOBIN (BEAKER) (test tjbd=480) 12.9 g/dL 13.0-16.8 HEMATOCRIT (BEAKER) (test qxvk=258) 38.0 % 40.0-50.0 SODIUM NA-STAT [id number] 16:45:00* Test Item Value Reference Range Comments SODIUM (BEAKER) (test mlqf=407) 141 meq/L 135-148 POTASSIUM-STAT [id number] 16:45:00* Test Item Value Reference Range Comments POTASSIUM (BEAKER) (test fedc=880) 3.8 meq/L 3.6-5.5 SODIUM NA-STAT [id number] 14:24:00* Test Item Value Reference Range Comments SODIUM (BEAKER) (test nzne=591) 139 meq/L 135-148 POTASSIUM-STAT [id number] 14:24:00* Test Item Value Reference Range Comments POTASSIUM (BEAKER) (test uiob=998) 3.9 meq/L 3.6-5.5 HGB/HCT (H&H) - STAT [id number] 14:24:00* Test Item Value Reference Range Comments HEMOGLOBIN (BEAKER) (test meca=318) 14.6 g/dL 13.0-16.8 HEMATOCRIT (BEAKER) (test iqds=431) 43.0 % 40.0-50.0 BLOOD GAS, [id number] 14:24:00* Test Item Value Reference Range Comments PH ARTERIAL (BEAKER) (test pjrx=567) 7.40 7.35-7.45 PCO2 ARTERIAL (BEAKER) (test gjsy=920) 45 mmHg 35-45 PO2 ARTERIAL (BEAKER) (test nfpe=474) 114 mmHg 80-90 O2 SATURATION ARTERIAL (BEAKER) (test rqie=357) 98.3 % 96.0-97.0 HCO3 ARTERIAL (BEAKER) (test yoih=008) 28 mmol/L 21-29 BASE EXCESS ARTERIAL (BEAKER) (test cwin=561) 1.6 mmol/L -2.0-3.0 PATIENT TEMPERATURE (BEAKER) (test lgzd=9122) 35.1 C FIO2 (BEAKER) (test jrlj=1249) 55.0 % GLUCOSE-STAT [id number] 14:24:00* Test Item Value Reference Range Comments GLUCOSE RANDOM (BEAKER) (test eusz=764) 120 mg/dL 70-110 CALCIUM, [id number] 14:24:00* Test Item Value Reference Range Comments CALCIUM IONIZED (BEAKER) (test tjab=523) 1.11 mmol/L 1.12-1.27 PH, BLOOD (BEAKER) (test jdwi=8331) 7.37 HEMOGLOBIN [id number] 15:22:00* Test Item Value Reference Range Comments HEMOGLOBIN A1C (BEAKER) (test rpui=893) 5.6 % 4.3-6.1 URINALYSIS W/ [id number] 14:54:00* Test Item Value Reference Range Comments COLOR (BEAKER) (test utbh=256) Yellow CLARITY (BEAKER) (test vuor=279) Clear SPECIFIC GRAVITY UA (BEAKER) (test sxmd=931) 1.019 1.001-1.035 PH UA (BEAKER) (test yofd=777) 6.5 5.0-8.0 PROTEIN UA (BEAKER) (test kmui=132) 20 mg/dL Negative GLUCOSE UA (BEAKER) (test cfjg=688) Negative Negative KETONES UA (BEAKER) (test uusp=392) Negative Negative BILIRUBIN UA (BEAKER) (test ijyq=750) Negative Negative BLOOD UA (BEAKER) (test pudh=006) Negative Negative NITRITE UA (BEAKER) (test frxn=623) Negative Negative LEUKOCYTE ESTERASE UA (BEAKER) (test vher=666) Negative Negative UROBILINOGEN UA (BEAKER) (test rbmy=090) 0.2 mg/dL 0.2-1.0 RBC UA (BEAKER) (test lalg=872) 1 /HPF WBC UA (BEAKER) (test hlhq=709) < /HPF MUCUS (BEAKER) (test xkag=8835) Many SQUAMOUS EPITHELIAL (BEAKER) (test lwye=581) < /HPF HYALINE CASTS (BEAKER) (test oqxm=895) 1 /LPF SOURCE(BEAKER) (test mojc=3328) COMPREHENSIVE METABOLIC [id number] 14:12:00* Test Item Value Reference Range Comments TOTAL PROTEIN (BEAKER) (test jice=450) 8.2 gm/dL 6.0-8.3 ALBUMIN (BEAKER) (test upbt=9634) 4.7 g/dL 3.5-5.0 ALKALINE PHOSPHATASE (BEAKER) (test qdpx=486) 103 U/L 40-150 BILIRUBIN TOTAL (BEAKER) (test dkzk=029) 0.6 mg/dL 0.2-1.2 SODIUM (BEAKER) (test frvj=303) 143 meq/L 136-145 POTASSIUM (BEAKER) (test potj=136) 4.1 meq/L 3.5-5.1 CHLORIDE (BEAKER) (test hcuh=668) 105 meq/L 98-107 CO2 (BEAKER) (test anpq=471) 30 meq/L 22-29 BLOOD UREA NITROGEN (BEAKER) (test jpqa=617) 17 mg/dL 7-21 CREATININE (BEAKER) (test rpqq=785) 1.04 mg/dL 0.57-1.25 GLUCOSE RANDOM (BEAKER) (test sscv=938) 85 mg/dL 70-105 CALCIUM (BEAKER) (test qvqs=907) 10.3 mg/dL 8.4-10.2 AST (SGOT) (BEAKER) (test bjbp=817) 23 U/L 5-34 ALT (SGPT) (BEAKER) (test xate=863) 29 U/L 6-55 EGFR (BEAKER) (test txwu=7246) 75 mL/min/1.73 sq m ESTIMATED GFR IS NOT ACCURATE CREATININE CLEARANCE IN PREDICTING GLOMERULAR FILTRATION RATE. ESTIMATED GFR IS NOT APPLICABLE FOR DIALYSIS PATIENTS. RAD, CHEST, 2 [id number] 14:01:00Reason for exam:->PreopFINAL REPORT Chest, PA and lateral. History: Preoperative. Comparison: None available. Discussion: The cardiomediastinal silhouette and pulmonary vasculature are within normal limits. The lungs are clear without ev idence of consolidation or effusion. There are no acute osseous abnormalities. The soft tissues are unremarkable. IMPRESSION: No acute cardiopulmonary abnorma lity. Signed: Gurmeet Pastor MDReport Verified Date/Time: 08/30/2018 14:01:04 Reading Location: [address] Radiology Reading Room HROMBIN TIME/INR 2018-08-30 13:59:00* Test Item Value Reference Range Comments PROTIME (BEAKER) (test xtng=594) 13.9 seconds 11.7-14.7 INR (BEAKER) (test zfou=747) 1.1 <=5.9 RECOMMENDED COUMADIN/WARFARIN INR THERAPY RANGESSTANDARD DOSE: 2.0 - 3.0 Inclu soraya: PROPHYLAXIS for venous thrombosis, systemic embolization; TREATMENT for melissa ous thrombosis and/or pulmonary embolus.HIGH RISK: Target INR is 2.5-3.5 for pat ients with mechanical heart valves.CBC W/PLT COUNT & AUTO [id number] 13:49:00* Test Item Value Reference Range Comments WHITE BLOOD CELL COUNT (BEAKER) (test pgee=925) 8.9 K/ L 3.5-10.5 RED BLOOD CELL COUNT (BEAKER) (test lmzk=681) 5.22 M/ L 4.63-6.08 HEMOGLOBIN (BEAKER) (test ovsz=707) 16.4 GM/DL 13.7-17.5 HEMATOCRIT (BEAKER) (test vzzu=290) 49.8 % 40.1-51.0 MEAN CORPUSCULAR VOLUME (BEAKER) (test kcvs=674) 95.4 fL 79.0-92.2 MEAN CORPUSCULAR HEMOGLOBIN (BEAKER) (test yqsl=715) 31.4 pg 25.7-32.2 MEAN CORPUSCULAR HEMOGLOBIN CONC (BEAKER) (test bizt=736) 32.9 GM/DL 32.3-36.5 RED CELL DISTRIBUTION WIDTH (BEAKER) (test sarw=703) 13.5 % 11.6-14.4 PLATELET COUNT (BEAKER) (test rziz=434) 192 K/CU MM 150-450 MEAN PLATELET VOLUME (BEAKER) (test amex=612) 11.8 fL 9.4-12.4 NUCLEATED RED BLOOD CELLS (BEAKER) (test wola=627) 0 /100 WBC 0-0 NEUTROPHILS RELATIVE PERCENT (BEAKER) (test qzxn=415) 63 % LYMPHOCYTES RELATIVE PERCENT (BEAKER) (test pqdg=021) 22 % MONOCYTES RELATIVE PERCENT (BEAKER) (test wvyb=923) 13 % EOSINOPHILS RELATIVE PERCENT (BEAKER) (test rlwj=912) 2 % BASOPHILS RELATIVE PERCENT (BEAKER) (test nnot=132) 1 % NEUTROPHILS ABSOLUTE COUNT (BEAKER) (test hltb=894) 5.54 K/ L 1.78-5.38 LYMPHOCYTES ABSOLUTE COUNT (BEAKER) (test jqet=020) 1.95 K/ L 1.32-3.57 MONOCYTES ABSOLUTE COUNT (BEAKER) (test bdat=506) 1.11 K/ L 0.30-0.82 EOSINOPHILS ABSOLUTE COUNT (BEAKER) (test ymrk=562) 0.17 K/ L 0.04-0.54 BASOPHILS ABSOLUTE COUNT (BEAKER) (test fium=115) 0.06 K/ L 0.01-0.08 IMMATURE GRANULOCYTES-RELATIVE PERCENT (BEAKER) (test ktyq=5525) 0 % 0-1
--- NOTE | 2019-05-20 09:45 | NUR ---
0945am Bedside report received from Lenny WILSON. Identiferx2. Alert oriented and appropriate, PERRLA, respirations even and unlabored to room air. Pulses x4 extremities equal and strong. Pedal pulses PT/DP x4 Cap fill brisk < 3 sec. Skin warm and dry integrity appears D/I. IV 20g to hand presents healthy w/o s/s of infiltration or complaint. Abdomen soft and supple. pt offered toileting, denies need to urinate or defecate. No personal affects with patient. Family [phone]. Pt and family verbalizes understanding of POC. Rt Groin Angio seal w/o hematoma. No oozing. Currently w/o complaint of pain or need. Tolerating PO intake.Monitor Sinus [place].No gross issues pain pallor pressure or dysrhythmia. ds/alda
--- NOTE | 2019-05-20 11:00 | Operative Report ---
DATE OF PROCEDURE: 05/20/2019 SURGEON: Saul Hastings MD PROCEDURES: 1. Percutaneous transluminal coronary angioplasty of the right coronary artery. 2. Left heart catheterization with grafts. INDICATION: 1. Angina. 2. Coronary artery disease. TECHNIQUE: The right groin was draped and prepped in the usual fashion. The area was anesthetized with lidocaine. Standard Seldinger technique was used to place a 6-Cameroonian sheath into the right femoral artery without difficulty. A JL4 catheter was used to selectively engage the left coronary artery. A 3DRC catheter was used to selectively engage the right coronary artery and to selectively engage the radial artery to the ramus branch. A left internal mammary artery catheter was used to selectively engage the left internal mammary artery graft to the left anterior descending artery. An RCB catheter was used to selectively engage the saphenous vein graft to the right coronary artery. Attention was then turned to the 80% in-stent restenosis in the previously placed stents in the right coronary artery. The patient was bolused with Angiomax and placed in an Angiomax drip. A JR4 guiding catheter was used to selectively engage the right coronary artery. A Whisper wire was used to cross the area of stenosis. The previously placed stents were sequentially dilated with a 2.5 mm x 12 mm noncompliant balloon, which was inflated up to 18 atmospheres at this time. There were no complications. An Angio-Seal device was used for closure. RESULTS: 1. There is a normal left main trunk. 2. There is a large left anterior descending artery which is 100% occluded in its midportion. 3. There was a medium-sized AV circumflex artery, which gave rise to a small obtuse marginal branch with minimal disease in the circumflex system. 4. There was a large bifurcating ramus branch, which had a 90% proximal stenosis. 5. There was a large dominant right coronary artery, which had 100% occlusion distally at the origin of the posterior ventricular branch. The patient had multiple stents in the proximal and mid right coronary artery with areas of 80% and 70% in-stent restenosis. 6. The left internal mammary artery graft to the left anterior descending artery was widely patent. 7. The radial graft to the large bifurcating ramus artery was widely patent. 8. The saphenous vein graft to the right coronary artery was occluded. 9. The left ventriculogram was not done. CONCLUSION: Successful percutaneous transluminal coronary angioplasty of the right coronary artery. MD ANA Clarke/BRADFORD /[id number]
--- NOTE | 2019-05-20 14:00 | NUR ---
1400 Pt meets DC criteria. Rt Angioseal site assessed for s/s of complication and presence of hematoma. warm, dry, no discolor, and pulses present. IV removed from arm Distal tip appears intact. VS WNL. Pt denies pain, sob, or need at this time. Family at [facility],significant other. Review of discharge paperwork and follow up instructions. verbalized understanding. Pt to wheelchair and transported to front of hospital. Transferred to private vehicle under own strength w/o incident with DC paperwork in hand. ds/rn
== END | disposition home or self-care (01) ==
LOC: CATH LAB 07:15
PROVIDERS: ATTEND Internal Medicine Cardiovascular Disease
DX: I25.709 Atherosclerosis of coronary artery bypass graft(s), unspecified, with unspecified angina pectoris (principal); Z01.810 Encounter for preprocedural cardiovascular examination; Z01.812 Encounter for preprocedural laboratory examination; Z01.811 Encounter for preprocedural respiratory examination; Z95.1 Presence of aortocoronary bypass graft; Z95.5 Presence of coronary angioplasty implant and graft; Z79.82 Long term (current) use of aspirin; E78.5 Hyperlipidemia, unspecified; I25.2 Old myocardial infarction; Z87.891 Personal history of nicotine dependence
CPT/HCPCS: 36415; 71046; 80053; 85025; 85610; 85730; 92920; 93455; C1725; C1769 ×2; J0583; J2001; J2250; J3010; J7030; Q9967; C1760